=== PATIENT | male | born 1935 | race Caucasian/White ===

== ENCOUNTER 2016-03-19 10:55 | Emergency (ER) | payer OTHER, MEDICARE ==
[~2016-03-19] VITALS: Ht 190.5 cm; Wt 76.2 kg
[~2016-03-19 10:55] MED LIST: ALBUTEROL0.09 MG/A1 INH; AMOXIL 875 MG875 MG PO; AZILECT1 M1 PO; BACTRIM DS TAB1 EACH PO; BUSPIRONE HCL5 M1 PO; CARBIDOPA-LEVO1 EAC9 PO; FINASTERIDE5 M1 PO; FISH OIL 1,2001 EAC3 PO; FLOMAX0.4 M1 PO; GLUCOSAMINE &1 EAC1 PO; GLUCOSAMINE/CHO1 CAP PO; KEFLEX500 M1 PO; LOVASTATIN40 M1 PO; MAGNESIUM OXID400 M1 PO; OMEGA 31000 MG PO; OMEPRAZOLE40 M1 PO; POLYTRIM O200 GTT/BO OPH; TYLENOL325 M1 PO; VALSART/HCTZ TAB 320 PO; VESICARE 10MG10 MG PO; VESICARE5 M1 PO; VITAMIN B-650 M2 PO
[2016-03-19 11:05] VITALS: BP 149/69
--- NOTE | 2016-03-19 11:27 | ED THROAT/DENTAL COMPLAINT ---
History of Present Illness General Chief Complaint: Sore Throat, Dental Pain Stated Complaint: SORE THROAT X 30 MIN Source: patient Exam Limitations: no limitations Vital Signs & Intake/Output Vital Signs & Intake/Output Vital Signs Date Time Temp Pulse Resp B/P Pulse O2 O2 Flow FiO2 Ox Delivery Rate 03/19 1105 97.9 79 20 149/69 98 Room Air Allergies Coded Allergies: aspirin (BLEEDING- [facility]EVENS'S 11/30/15) Triage Note: PT TO ED C/O SORE THROAT X 1 HOUR. AFEBRILE. Triage Nurses Notes Reviewed? yes Onset: Gradual Duration: minute(s): (30) Timing: remote history Injury Environment: home Severity: moderate Severity Numbers: 6 Modifying Factors: Worsens With: other (SWALLOWING). HPI: Patient is a 80-year-old male with history of Parkinson presenting to the emergency department with chief complaint of sore throat that started about 30 minutes prior to arrival. Pain is sharp and stabbing more on the right than the left. Denies any fevers or chills. Mild upper respiratory congestion recently. Denies any coughing. No nausea or vomiting fevers or chills. No chest pain shortness of breath or palpitations. Pain does not radiate. Pain is worse with swallowing. (JOSEFA NICHOLAS,BOUCHRA) Reconcile Medications Acetaminophen (Tylenol) 325 MG TABLET 1 TAB PO PRN PAIN (Reported) BUSPIRONE HCL (Buspirone HCl) 5 MG TABLET 1 TAB PO TID ANXIETY (Reported) Carbidopa/Levodopa (Carbidopa-Levo ER 50-200 Tab) 1 EACH TABLET.ER 1 TAB PO 5 TIMES A DAY PARKINSONS (Reported) Finasteride (Propecia) 5 MG TAB 5 MG PO DAILY ENLARGED PROSTATE (Reported) Gluc 2KCL/Chondr/Yulissa Hy/Hy AC (Glucosamine & Chondroitin Cap) 1 EACH CAPSULE 1,500 MG PO DAILY SUPPLEMENT (Reported) Lidocaine HCl (Lidocaine HCl Viscous) 2 % SOLUTION 15 ML PO 4 TIMES/DAY PRN SORE THROAT Lovastatin 40 MG TABLET 1 TAB PO DAILY CHOL (Reported) with food Magnesium Oxide 400 MG TAB 1 TAB PO DAILY VIT (Reported) [place]-3S/Dha/Epa/Fish Oil (Fish Oil 1,200 MG Softgel) 1 EACH CAPSULE 2 CAP PO DAILY SUPPLEMENT (Reported) Omeprazole 40 MG CAPSULE.DR 1 CAP PO BID GI (Reported) Pyridoxine HCl (Vitamin B-6) (Unknown Strength) TABLET (Unknown Dose) PO DAILY SUPPLEMENT (Reported) Rasagiline (Azilect 1MG) 1 MG TABLET 1 TAB PO DAILY UNK (Reported) Solifenacin Succinate (Vesicare) 5 MG TABLET 1 TAB PO DAILY BLADDER (Reported ) TAMSULOSIN HCL (Tamsulosin Hydrochloride) 0.4 MG CAP.ER.24H 1 CAP PO DAILY URINE (Reported) (RUSSELL RANDOLPH DO) Past History Travel History Traveled to [place] past 21 day No Medical History Any Pertinent Medical History? 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 No (BOUCHRA PAREKH) Review of Systems Review of Systems Constitutional: Reports: no symptoms. Comments Review of systems: See HPI, All other systems negative. Constitutional, no chills fever or weight loss HEENT: No visual changes Cardiovascular: No chest pain ,palpitation Skin, no jaundice no rashes Respiratory: No dyspnea cough sputum or hemoptysis GI: No nausea no vomiting : No dysuria No hematuria Muscle skeletal: no back pain, no neck pain, Neurologic: No numbness no RODRIGUEZ Immunology: No splenectomy or history of AIDS (BOUCHRA PAREKH) Physical Exam Physical Exam General Appearance: well developed/nourished, no apparent distress, alert, awake , comfortable Mouth/Throat: PHARYNGEAL ERYTHEMA Comments: Well-developed well-nourished person in no acute distress HEENT: Normal EENT exam, extraocular motion intact, no nystagmus. Pupils equally round and reactive to light and accommodation. Nose is atraumatic. External auditory canal and Tympanic membranes clear. Pharynx . is injected and erythematous, mild tonsillar enlargement bilaterally. White exudate on the right tonsil. No peritonsillar abscess identified. Uvula is midline. No swelling or edema. Neck: Supple, no lymphadenopathy, normal range of motion without pain or tenderness Cardiovascular: normal JVP Respiratory:No respiratory distress. Neuro: Alert oriented x3 Skin: No appreciable rash on exposed skin, skin is warm and dry. Psych: Mood and affect is normal, memory and judgment is normal. Core Measures ACS in differential dx? No Severe Sepsis Present: No Septic Shock Present: No (BOUCHRA PAREKH) Progress Differential Diagnosis: strep pharyngitis, VIRAL PHARYNGITIS, UPPER RESPIRATORY INFECTION, SINUSITIS, LARYNGITIS, PERITONSILLAR ABSCESS Plan of Care: Orders Procedure Date/time Status THROAT CULTURE W/QUICK STREP 03/19 1107 Active Departure Departure Time of Disposition: 113 Disposition: HOME OR SELF CARE Condition: Stable Clinical Impression Primary Impression: Pharyngitis Qualifiers: Pharyngitis/tonsillitis etiology: unspecified etiology Qualified Code: J02.9 - Acute pharyngitis, unspecified Referrals: GATO LACEY MD (PCP/Family) Referred to [facility] as new patient No Additional Instructions: Follow-up with your primary care physician call to make an appointment. Increase fluids. Use viscous lidocaine as prescribed to help with sore throat. Follow-up with your primary care physician. Return for worsening symptoms or concerns. Departure Forms: Customer Survey General Discharge Information Prescriptions: Current Visit Scripts Lidocaine HCl (Lidocaine HCl Viscous) 15 ML PO 4 TIMES/DAY PRN SORE THROAT #100 ML (BOUCHRA PAREKH) PA/APPOINTMENT SETTER Co-Sign Statement Statement: ED Attending supervision documentation- [] I saw and evaluated the patient. I have also reviewed all the pertinent lab results and diagnostic results. I agree with the findings and the plan of care as documented in the PA's/APPOINTMENT SETTER's documentation. [x] I have reviewed the ED Record and agree with the PA's/APPOINTMENT SETTER's documentation. [] Additions or exceptions (if any) to the PAs/APPOINTMENT SETTER's note and plan are summarized below: [] (RUSSELL RANDOLPH DO)
[2016-03-19] MEDS ORDERED: LIDOCAINE HCL V15 ML PO (11:31)
[2016-03-20] MEDS ORDERED: STOOL SOFTENER50 MG PO (06:35)
[2016-03-20] MEDS ORDERED: NUPLAZID17 MG PO (06:36)
== END 2016-03-19 11:54 ==
LOC: ERH 10:55
DX: J02.9 Acute pharyngitis, unspecified (principal); Z87.891 Personal history of nicotine dependence

== ENCOUNTER 2016-03-20 02:00 | Inpatient (IN) | payer OTHER, MEDICARE ==
[~2016-03-20] VITALS: Ht 193 cm; Wt 76.2 kg
[~2016-03-20 02:00] MED LIST changes: +LIDOCAINE HCL V15 ML PO
--- NOTE | 2016-03-20 02:04 | ED AMS/SEIZURE/WEAK/DIZZY ---
History of Present Illness General Chief Complaint: Altered Mental Status Stated Complaint: "PER EMS NOSE BLEED" Source: EMS Exam Limitations: clinical condition Vital Signs & Intake/Output Vital Signs & Intake/Output Vital Signs Date Time Temp Pulse Resp B/P Pulse O2 O2 Flow FiO2 Ox Delivery Rate 03/20 0238 97.2 65 18 161/85 99 Room Air Allergies Coded Allergies: aspirin (BLEEDING- STEVENS'S 11/30/15) Reconcile Medications Acetaminophen (Tylenol) 325 MG TABLET 1 TAB PO PRN PAIN (Reported) BUSPIRONE HCL (Buspirone HCl) 5 MG TABLET 1 TAB PO TID ANXIETY (Reported) Carbidopa/Levodopa (Carbidopa-Levo ER 50-200 Tab) 1 EACH TABLET.ER 1 TAB PO 5 TIMES A DAY PARKINSONS (Reported) Finasteride (Propecia) 5 MG TAB 5 MG PO DAILY ENLARGED PROSTATE (Reported) Gluc 2KCL/Chondr/Yulissa Hy/Hy AC (Glucosamine & Chondroitin Cap) 1 EACH CAPSULE 1,500 MG PO DAILY SUPPLEMENT (Reported) Lidocaine HCl (Lidocaine HCl Viscous) 2 % SOLUTION 15 ML PO 4 TIMES/DAY PRN SORE THROAT Lovastatin 40 MG TABLET 1 TAB PO DAILY CHOL (Reported) with food Magnesium Oxide 400 MG TAB 1 TAB PO DAILY VIT (Reported) [place]-3S/Dha/Epa/Fish Oil (Fish Oil 1,200 MG Softgel) 1 EACH CAPSULE 2 CAP PO DAILY SUPPLEMENT (Reported) Omeprazole 40 MG CAPSULE.DR 1 CAP PO BID GI (Reported) Pyridoxine HCl (Vitamin B-6) (Unknown Strength) TABLET (Unknown Dose) PO DAILY SUPPLEMENT (Reported) Rasagiline (Azilect 1MG) 1 MG TABLET 1 TAB PO DAILY UNK (Reported) Solifenacin Succinate (Vesicare) 5 MG TABLET 1 TAB PO DAILY BLADDER (Reported ) TAMSULOSIN HCL (Tamsulosin Hydrochloride) 0.4 MG CAP.ER.24H 1 CAP PO DAILY URINE (Reported) Triage Nurses Notes Reviewed? yes Onset: Abrupt Duration: hour(s):, unknown duration Timing: recent history Injury Environment: home Severity: moderate Modifying Factors: Improves With: rest. Associated Symptoms: FELL AND HAD A NOSEBLEED HPI: 80 yo gentleman presents with mental status change of unknown duration. The medics note that his sister had come over and that he had been confused. He then called 911 and was able to speak. When the medics arrived he was minimally verbal, but appeared to have no focal weakness. Per the sister, "He cried out, 'help, help,' and then he did not respond... He was lying on the sofa.... lasted maybe 10-15 minutes and then I called 911." He is lethargic and minimally responsive to verbal stimuli. Past History Travel History Traveled to [place] past 21 day No Medical History Any Pertinent Medical History? 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 No Review of Systems Review of Systems Constitutional: Reports: no symptoms. EENTM: Reports: no symptoms. Respiratory: Reports: no symptoms. Cardiovascular: Reports: no symptoms. GI: Reports: no symptoms. Genitourinary: Reports: no symptoms. Musculoskeletal: Reports: no symptoms. Skin: Reports: no symptoms. Neurological/Psychological: Reports: no symptoms. Hematologic/Endocrine: Reports: no symptoms. Immunologic/Allergic: Reports: no symptoms. All Other Systems: Reviewed and Negative Physical Exam Physical Exam General Appearance: awake, mild distress, lethargic Head: atraumatic, normal appearance Eyes: Bilateral: normal appearance, PERRL, EOMI. Ears, Nose, Throat: normal pharynx, normal ENT inspection Neck: normal inspection, supple, full range of motion Respiratory: normal breath sounds, chest non-tender, no respiratory distress, quiet respiration, lungs clear Cardiovascular: regular rate/rhythm Gastrointestinal: normal bowel sounds, soft, non-tender Back: normal inspection, normal range of motion Extremities: normal range of motion, no focal weakness, but only weak stockroom associate bilaterally when asked to squeeze. Neurologic/Psych: lethargic, responsive to verbal stimuli Reflexes: 0: bicep (R), bicep (L), knee (R), knee (L). Skin: intact, normal color, warm/dry Core Measures ACS in differential dx? No CVA/TIA Diagnosis: No Severe Sepsis Present: No Septic Shock Present: No Progress Differential Diagnosis: alcohol intoxication, seizure vs parkinson's vs bleed vs other. Plan of Care: Orders Procedure Date/time Status Nothing by Mouth 03/20 B Active Patient Data 03/20 442 Active Saline Lock 03/20 439 Active Misc Message 03/20 439 Active ED Holding Orders 03/20 439 Active Vital Signs 03/20 439 Active Code Status 03/20 439 Active Admit to inpatient 03/20 438 Active PROLACTIN 03/20 299 Complete Add-on Test (ER Only) 03/20 255 Active URINE DRUG SCREEN FOR ER ONLY 03/20 203 Complete URINALYSIS 03/20 203 Complete TROPONIN LEVEL 03/20 203 Complete ETHANOL 03/20 203 Complete COMPREHENSIVE METABOLIC PANEL 03/20 203 Complete CBC WITHOUT DIFFERENTIAL 03/20 203 Complete EKG 03/20 203 Active Laboratory Tests 03/20/16 0329: Urine Opiates Screen < 100.00, Methadone Screen < 40, Barbiturate Screen < 60, Ur Phencyclidine Scrn < 6.00, Amphetamines Screen < 100, U Benzodiazepines Scrn < 85, Urine Cocaine Screen < 50, Urine Cannabis Screen < 5.00, Urine Color STRAW , Urine Clarity CLEAR, Urine pH 7.0, Ur Specific [place] 1.015, Urine Protein NEG, Urine Ketones NEG, Urine Nitrite NEG, Urine Bilirubin NEG, Urine Urobilinogen 0.2, Ur Leukocyte Esterase NEG, Ur Microscopic EXAM NOT REQUIRED, Urine Hemoglobin NEG, Urine Glucose NEG 03/20/16 0300: Anion Gap 11, Estimated GFR > 60, BUN/Creatinine Ratio 28.6 H, Glucose 112 H, Calcium 8.9, Total Bilirubin 0.5, AST 21, ALT 13 L, Alkaline Phosphatase 49, Troponin I < 0.01, Total Protein 6.5, Albumin 3.8, Globulin 2.7, Albumin/ Globulin Ratio 1.4, Prolactin 5.8, CBC w Diff NO MAN DIFF REQ, RBC 4.06 L, MCV 89.5, MCH 29.9, RDW 14.4, MPV 7.8, Gran % 75.8 H, Lymphocytes % 14.2 L, Monocytes % 7.1, Eosinophils % 2.0, Basophils % 0.9, Absolute Granulocytes 3.9, Absolute Lymphocytes 0.7 L, Absolute Monocytes 0.4, Absolute Eosinophils 0.1, Absolute Basophils 0, PUBS MCHC 33.4, Serum Alcohol < 10.0 Diagnostic Imaging: Viewed by Me: Radiology Read, CT Scan. Discussed w/RAD: Radiology Read, CT Scan. Radiology Impression: head/maxillofacial/cervical ct... no acute disease... full report below. CXR Impression: no acute abnormality, no infiltrates, normal size heart, normal mediastinum Initial ED EKG: normal axis, normal intervals, normal p-waves, normal QRS complex, normal sinus rhythm Comments: PATIENT: ANGELO DUBON PRESENT AGE: 80 PATIENT ACCOUNT NO: [id number] : 37 LOCATION: ER ORDERING PHYSICIAN: GUERO PIKE MD SERVICE DATE: 03/20/16 EXAM TYPE: RAD - XRY-PORTABLE CHEST XRAY EXAMINATION: XR PORTABLE CHEST CLINICAL INFORMATION: TIA COMPARISON: 01/03/2016 TECHNIQUE: AP portable upright view of the chest FINDINGS: Lungs are mildly hyperexpanded though clear. No consolidation, pneumothorax, or pleural effusion. Cardiac and mediastinal contours are normal. Pulmonary vasculature is unremarkable. Osseous structures are unremarkable. IMPRESSION: No acute cardiopulmonary findings DICTATED BY: JOSE G BAZAN MD DATE/TIME DICTATED:03/20/16405 [employer] SUPERINTENDENT:FLAKITA DATE/TIME TRANSCRIBED:03/20/16405 CONFIDENTIAL, DO NOT COPY WITHOUT APPROPRIATE AUTHORIZATION. <Electronically signed in Other Vendor System> SIGNED BY: JOSE G BAZAN MD 03/20/16 0415 PATIENT: ANGELO DUBON PRESENT AGE: 80 PATIENT ACCOUNT NO: [id number] : 37 LOCATION: ER ORDERING PHYSICIAN: UGERO PIKE MD SERVICE DATE: 03/20/16 EXAM TYPE: CAT - CT CERV SPINE WO IV CONTRAST; CT HEAD WO IV CONTRAST; CT MAXILLOFACIAL W/O CON EXAMINATION: CT OF THE HEAD WITHOUT CONTRAST CT MAXILLOFACIAL WITHOUT CONTRAST CT OF THE CERVICAL SPINE WITHOUT CONTRAST CLINICAL INFORMATION: Altered mental status. Fall. Nosebleed. COMPARISON: Head CT dated 06/21/2010 TECHNIQUE: Contiguous axial imaging of the head was performed without the administration of IV contrast. Axial multidetector volumetric images were also performed through the facial bones and cervical spine without contrast. Multiplanar reconstructed images in coronal and sagittal orientations were submitted. DOSE: 1816 mGy-cm FINDINGS: HEAD: There is no evidence of acute intracranial hemorrhage or territorial infarction. No abnormal mass-effect or midline shift. No extra-axial fluid collections. Rapp to white matter differentiation is well preserved. The ventricles are normal in size and configuration. There is no abnormal attenuation within the brain parenchyma. Mild ectasia of the left supraclinoid M1 segment is unchanged. The soft tissues and osseous structures are normal. The sinuses and mastoid air cells are clear. FACE: Orbits, lamina papyracea, maxillary sinus quiles, pterygoid plates, zygomatic arches, nasal bone, and nasal septum are intact. No acute fractures are identified. There is a calcific focus within the diploic space of the right supraorbital rim which is of doubtful clinical significance, likely developmental variant. Paranasal sinuses are clear. Mastoid air cells are clear. There is pneumatization of the petrous apices. Degenerative changes are present at the talonavicular joints. Maxilla is edentulous. The incisors and canines remain at the mandible with multiple dental caries. Globes are unremarkable. Intraconal and coronal fat of the orbits are normal. Tonsillar calcifications are present bilaterally. Oropharynx and nasopharynx are otherwise unremarkable. Calcific atherosclerosis is present in the carotid arteries. CERVICAL SPINE: There is mild to moderate multilevel degenerative disc disease in the cervical spine, characterized by loss of intervertebral disc height, endplate osteophytes, uncovertebral osteophytes, and endplate irregularity. Facet joints are relatively well-preserved. Degenerative changes are present at the articulation of C1 and the dens. No fracture or spondylolisthesis. Vertebral body heights are normal. Bones are osteopenic. Prevertebral and paraspinal soft tissues are unremarkable. No fluid collections. Pleural parenchymal scarring is present at the lung apices. IMPRESSION: 1. No acute intracranial pathology. 2. No acute maxillofacial fractures. Dental caries are present at the remaining mandibular teeth. 3. No acute fracture or malalignment in the cervical spine. There is mild to moderate multilevel degenerative disc disease. DICTATED BY: JOSE G BAZAN MD DATE/TIME DICTATED:03/20/16248 BI[employer]ASS [employer] SUPERINTENDENT:FLAKITA DATE/TIME TRANSCRIBED:03/20/16248 CONFIDENTIAL, DO NOT COPY WITHOUT APPROPRIATE AUTHORIZATION. <Electronically signed in Other Vendor System> SIGNED BY: JOSE G BAZAN MD 03/20/16 0302 Departure Departure Disposition: HOME OR SELF CARE Condition: Stable Clinical Impression Primary Impression: Mental status change Secondary Impressions: Unresponsive episode Referrals: GATO LACEY MD (PCP/Family) Referred to [facility] as new patient No Departure Forms: Customer Survey General Discharge Information Comments 03/20/16, 4:35am... pt is awake and alert, feels well, completely responding appropriately to all questions. Benign neuro exam. Admission Note Spoke With: GATO LACEY MD Documentation of Exam: Documentation of any treatments & extenuating circumstances including Concerns Regarding Discharge (functional status, medication knowledge or non-compliance, living conditions, etc.) that warrant an admission rather than observation: pt with period of unresponsiveness that lasted approximately 30 minutes, witness by myself and ED staff..... Wide differential: seizure, syncope, med-related, parksinson's. pt merits neuro and cards evaluation.
--- NOTE | 2016-03-20 02:18 | NUR ---
TRIAGE: PATIENT TO ER FROM HOME, PER EMS, CALL FOR NOSE BLEED, ON ARRIVAL, PATIENT LAYING ON FLOOR, INTERMITTENTLY ALERT TO BE VERBAL STIMULI, PATIENT NOT RESPONDING TO PAINFUL STIMULI ON ARRIVAL. PER EMS, WHEN INTERMITTENTLY ALERT
--- NOTE | 2016-03-20 02:46 | NUR ---
PATIENT RETURNS FROM CT W/ THIS RN. HR:69-72 ON MONITOR. EKG COMPLETED BY THIS RN. PATIENT NOW ALERT AND ORIENTED X 3, SPEECH SLOW, NO FACIAL DROOP NOTED. NEUROS INTACT. PATIENT REPORTING, "BEEN COUGHING FOR A FEW DAYS, FEEL LIKE MAYBE SOMETHING IN MY THROAT." AIRWAY PATENT, O2: 99% RA. SPEECH CLEAR. FINGERSTICK: 124. MD AWARE OF PATIENT CURRENT CONDITION. PATIENT RESTING COMFORTABLY ON STRETCHER, REPORTS "MAY HAVE TO PEE SOON, FEEL LIKE MY BLADDER IS FULL OF URINE," DECLINES URINAL AT THIS TIME.
--- NOTE | 2016-03-20 03:00 | NUR ---
HOSPITAL IV EST #20 LEFT HAND. BLOODWORK OBTAINED AND SENT TO LAB (LAV, SST X2, BLUE, AGUILAR). 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
--- NOTE | 2016-03-20 03:02 | CT SCAN REPORT ---
EXAMINATION: CT OF THE HEAD WITHOUT CONTRAST CT MAXILLOFACIAL WITHOUT CONTRAST CT OF THE CERVICAL SPINE WITHOUT CONTRAST CLINICAL INFORMATION: Altered mental status. Fall. Nosebleed. COMPARISON: Head CT dated 06/21/2010 TECHNIQUE: Contiguous axial imaging of the head was performed without the administration of IV contrast. Axial multidetector volumetric images were also performed through the facial bones and cervical spine without contrast. Multiplanar reconstructed images in coronal and sagittal orientations were submitted. DOSE: 1816 mGy-cm FINDINGS: HEAD: There is no evidence of acute intracranial hemorrhage or territorial infarction. No abnormal mass-effect or midline shift. No extra-axial fluid collections. Rapp to white matter differentiation is well preserved. The ventricles are normal in size and configuration. There is no abnormal attenuation within the brain parenchyma. Mild ectasia of the left supraclinoid M1 segment is unchanged. The soft tissues and osseous structures are normal. The sinuses and mastoid air cells are clear. FACE: Orbits, lamina papyracea, maxillary sinus quiles, pterygoid plates, zygomatic arches, nasal bone, and nasal septum are intact. No acute fractures are identified. There is a calcific focus within the diploic space of the right supraorbital rim which is of doubtful clinical significance, likely developmental variant. Paranasal sinuses are clear. Mastoid air cells are clear. There is pneumatization of the petrous apices. Degenerative changes are present at the talonavicular joints. Maxilla is edentulous. The incisors and canines remain at the mandible with multiple dental caries. Globes are unremarkable. Intraconal and coronal fat of the orbits are normal. Tonsillar calcifications are present bilaterally. Oropharynx and nasopharynx are otherwise unremarkable. Calcific atherosclerosis is present in the carotid arteries. CERVICAL SPINE: There is mild to moderate multilevel degenerative disc disease in the cervical spine, characterized by loss of intervertebral disc height, endplate osteophytes, uncovertebral osteophytes, and endplate irregularity. Facet joints are relatively well-preserved. Degenerative changes are present at the articulation of C1 and the dens. No fracture or spondylolisthesis. Vertebral body heights are normal. Bones are osteopenic. Prevertebral and paraspinal soft tissues are unremarkable. No fluid collections. Pleural parenchymal scarring is present at the lung apices. IMPRESSION: 1. No acute intracranial pathology. 2. No acute maxillofacial fractures. Dental caries are present at the remaining mandibular teeth. 3. No acute fracture or malalignment in the cervical spine. There is mild to moderate multilevel degenerative disc disease.
[2016-03-20 03:14] LABS: ABSOLUTE BASOPHIL COUNT 0 /CUMM (0.0-0.2); ABSOLUTE EOSINOPHIL COUNT 0.1 /CUMM (0.0-0.7); ABSOLUTE GRANULOCYTE CT 3.9 /CUMM (1.4-6.5); ABSOLUTE LYMPH COUNT 0.7 /CUMM (1.2-3.4); ABSOLUTE MONOCYTE COUNT 0.4 /CUMM (0.10-0.60); BASOPHIL % 0.9 % (0.0-2.0); GRANULOCYTE % 75.8 % (42.2-75.2); HEMATOCRIT 36.3 % (42-52); MEAN CORPUSCULAR HGB 29.9 PG (27.0-31.0); MEAN CORPUSCULAR HGB CONC 33.4 G/DL (33.0-37.0); MEAN CORPUSCULAR VOLUME 89.5 FL (80.0-94.0); MEAN PLATELET VOLUME 7.8 FL (7.4-10.4); PLATELET COUNT 155 /CUMM (130-400); RBC DISTRIBUTION WIDTH 14.4 % (11.5-14.5); RED BLOOD CELL CT 4.06 /CUMM (4.70-6.10); WHITE BLOOD CELL COUNT 5.1 /CUMM (4.8-10.8)
--- NOTE | 2016-03-20 03:15 | NUR ---
PATIENT ASSISTED TO USING URINAL BY [facility] AT THIS TIME.
--- NOTE | 2016-03-20 03:55 | NUR ---
PORTABLE XRAY IN PROGRESS.
--- NOTE | 2016-03-20 04:15 | RADIOLOGY REPORT ---
EXAMINATION: XR PORTABLE CHEST CLINICAL INFORMATION: TIA COMPARISON: 01/03/2016 TECHNIQUE: AP portable upright view of the chest FINDINGS: Lungs are mildly hyperexpanded though clear. No consolidation, pneumothorax, or pleural effusion. Cardiac and mediastinal contours are normal. Pulmonary vasculature is unremarkable. Osseous structures are unremarkable. IMPRESSION: No acute cardiopulmonary findings
--- NOTE | 2016-03-20 04:20 | NUR ---
MD PIKE AT BEDSIDE FOR REEVAL. PATIENT REMAINS ALERT AND ORIENTED.
--- NOTE | 2016-03-20 04:51 | History & Physical ---
See Addendum KELSEY HILL,JUVENAL 03/20/16 0447: General Information and HPI Source of Information: old records, EMS Exam Limitations: clinical condition History of Present Illness: And is a 80-year-old gentleman with a past medical history of significant for Syncope/pre-syncope, Parkinson's disease, Visual disturbances, Hypertension, Osteoarthritis, prostate cancer,Stevens esophagus, Intramucosal adenocarcinoma of the esophagu presented with the chief complaints of altered mental status. We got part of the history from the sister. According to her, the patient was sleeping and had epistaxis and shouted for the help and by the time,his sensorium become altered, so she called 911 and bring the patient to the ED of [facility]. In the hospital, the ED attending observed that the patient was having altered mental status at the time of first examination, but recovered in couple of hours. Patient had recently started on Nuplazide (pimavanserin) for hallucinations. Allergies/Medications Allergies: Coded Allergies: aspirin (BLEEDING- STEVENS'S 11/30/15) Home Med list Acetaminophen (Tylenol) 325 MG TABLET 1 TAB PO PRN PAIN (Reported) BUSPIRONE HCL (Buspirone HCl) 5 MG TABLET 1 TAB PO TID ANXIETY (Reported) Carbidopa/Levodopa (Carbidopa-Levo ER 50-200 Tab) 1 EACH TABLET.ER 1 TAB PO 5 TIMES A DAY PARKINSONS (Reported) Docusate Sodium (Stool Softener) 50 MG CAPSULE 1 TAB PO DAILY STOOL SOFTENER (Reported) Finasteride (Propecia) 5 MG TAB 5 MG PO DAILY ENLARGED PROSTATE (Reported) Gluc 2KCL/Chondr/Yulissa Hy/Hy AC (Glucosamine & Chondroitin Cap) 1 EACH CAPSULE 1,500 MG PO DAILY SUPPLEMENT (Reported) Lovastatin 40 MG TABLET 1 TAB PO DAILY CHOL (Reported) with food Magnesium Oxide 400 MG TAB 1 TAB PO DAILY VIT (Reported) [place]-3S/Dha/Epa/Fish Oil (Fish Oil 1,200 MG Softgel) 1 EACH CAPSULE 2 CAP PO DAILY SUPPLEMENT (Reported) Omeprazole 40 MG CAPSULE.DR 1 CAP PO BID GI (Reported) Pimavanserin Tartrate (Nuplazid) 17 MG TABLET 1 TAB PO DAILY PARKINSONS/ MEMORY (Reported) Pyridoxine HCl (Vitamin B-6) (Unknown Strength) TABLET (Unknown Dose) PO DAILY SUPPLEMENT (Reported) Rasagiline (Azilect 1MG) 1 MG TABLET 1 TAB PO DAILY UNK (Reported) Solifenacin Succinate (Vesicare) 5 MG TABLET 1 TAB PO DAILY BLADDER (Reported ) TAMSULOSIN HCL (Tamsulosin Hydrochloride) 0.4 MG CAP.ER.24H 1 CAP PO DAILY URINE (Reported) Past History Travel History Traveled to [place] past 21 day No Medical History Neurological: Parkinson's disease EENT: NONE Cardiovascular: hyperlipidemia Respiratory: NONE Gastrointestinal: GERD Hepatic: NONE Renal: NONE Musculoskeletal: NONE Psychiatric: NONE Endocrine: NONE Blood Disorders: NONE Cancer(s): NONE APPLIED BIOLOGY PROFESSOR/Reproductive: NONE Surgical History Surgical History: non-contributory Review of Systems Review of Systems Constitutional: Reports: malaise, weakness. Denies: chills, diaphoresis, fever. EENTM: Reports: blurred vision, double vision, visual changes, epistaxis. Cardiovascular: Reports: syncope. Denies: chest pain, edema, orthopena, palpitations, peripheral edema. Respiratory: Denies: cough, hemoptysis, orthopnea, short of breath, sputum production, stridor. GI: Denies: abdominal pain, bloating, constipation, diarrhea, distention, bowel incontinence, melena, nausea, bloody stool. Genitourinary: Denies: discharge, dysuria, frequency, hematuria, hesitation. Musculoskeletal: Denies: back pain, gout, joint pain, joint swelling, muscle pain, neck pain. Skin: Denies: no symptoms. Neurological/Psychological: Reports: anxiety, dementia, weakness. Exam & Diagnostic Data Last 24 Hrs of Vital Signs/I&O Vital Signs Date Time Temp Pulse Resp B/P Pulse O2 O2 Flow FiO2 Ox Delivery Rate 03/20 0503 96.4 65 18 164/81 98 Room Air 03/20 0247 99 Room Air 03/20 0238 97.2 65 18 161/85 99 Room Air Physical Exam General Appearance Alert, Oriented X3, Cooperative, No Acute Distress Skin No Breakdown, SMALL RED ERYTHEMA ON THE DORSUM OF THE RIGHT WRIST HEENT Atraumatic, PERRLA, EOMI Neck Supple, No JVD Cardiovascular Regular Rate, Normal S1, Normal S2 Lungs Clear to Auscultation, Normal Air Movement Abdomen Soft, No Tenderness Neurological Normal Speech Extremities No Clubbing, No Cyanosis, No Edema Assessment/Plan Assessment: Assessment and plan - Vital signs at the time of admission-temperature 97.2, pulse 65, respiratory rate 18, blood pressure 161/85, SPO2 98% on room air. CT head -showed no any acute intracranial pathology, acute maxillofacial fracture, fracture or malalignment of cervical spine. Problem list - AMS Syncope/pre-syncope Parkinson's disease Visual disturbances Hypertension Osteoarthritis. 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 Plan - * We will admit the patient in the telemetry * To rule out the acute intracranial pathology, we did a CT scan head which comes out negative * We will take neurology consult for further evaluation of altered mental status and follow their recommendations * We will consider EEG to rule out seizures activity * Will take all seizure precaution and aspiration precaution * We will also place cardiology consult to evaluate for arrhythmias * We'll follow serial EKGs/troponins to rule out acute coronary syndrome * We will continue carbidopa/levered up of her parkinsonism * We will continue finasteride for BPH/prostate cancer * Diet-heart healthy diet * DVT prophylaxis-ALP S/Lovenox * CODE STATUS-full code As Ranked By This Provider Problem List: 1. Altered mental status Core Measures/Miscellaneous Acute Coronary Syndrome ACS Diagnosis: No Cerebrovascular Accident CVA/TIA Diagnosis: No Congestive Heart Failure CHF Diagnosis: No Venous Thromboembolism VTE Risk Factors: Age > 40 VTE Prophylaxis Ordered Inpt: Mechanical (ALPS/TEDS) No Mech VTE prophylaxis d/t: No contraindications No VTE Pharm Prophylaxis d/t: No contraindications VTE Diagnosis: No VTE Type: NONE VTE Confirmed by (Test): NONE Severe Sepsis Severe Sepsis Present: No Septic Shock Septic Shock Present: No Miscellaneous Documentation Attending Case Discussed With: GATO LACEY MD Primary Care Physician: GATO LACEY MD Patient sees these Specialists Crew Manager Neurologist Level of Patient Care: Telemetry NICHOLAS DEVLIN 03/20/16 0545: Resident Review Statement Resident Statement: examined this patient, discussed with internet database specialist, agreed with internet database specialist Other Findings: Patient is a 80-year-old gentleman with a past medical history significant for parkinsonism, visual hallucinations, vision disturbances,, hypertension and hyperlipidemia, history of Stevens's esophagus not on aspirin, chest pain syndrome, history of epistaxis GERD, history of prostate cancer ,presented to the ED with altered mental status. Patient lives with her sister at around 1:30 AM this morning patient's started having epistaxis while sleeping, he called his sister for help. Sister became concerned and called 911 right away. In the meanwhile patient became confused/ disoriented and passed out. He was immediately brought to the ER. In the ED his vitals were stable, CT head to rule out any underlying acute intracranial pathology. However he remained confused/unresponsive for almost 30 minutes. Within 1-2 hours he became more alert and awake, responding appropriately to questions. Patient has no history of seizures. He usually follows up with Dr. Keller as an outpatient for parkinsonism. As per sister patient has been having visual hallucinations and was recently started on a medication Nuplazide (pimavanserin) for hallucinations that patient started on 03/16/2016. He was seen in ER yesterday for possible viral sore throat with local pain in the neck and was discharged with Lidoderm patch by the ER physician. Patient has a history of chest pain syndrome follows up with Dr. Ojeda as an outpatient. Vitals on admission temperature 97.2, pulse 65, respiratory rate 18, blood pressure 161/85 on room air. On examination: General Appearance:alert oriented 3 , not in acute distress. Skin: Grossly normal HEENT: PEERLA Neck: Supple, No JVD Cardiovascular: Regular rate and rhythm without any murmurs. Lungs: Equal breath sounds bilaterally on lung exam without any rhonchi or wheeze Abdomen: Normal Bowel Sounds without any tenderness. Neurological: Normal Speech, Strength at 5/5 X4 Ext, Cranial Nerves 3-12 NL, Reflexes 2+ Extremities: Normal without any edema. Vascular: Normal Pulses. Pertinent labs: Normal WBC count H&H low 12.1, 36.3 normal BeP, urinalysis is normal, normal urine toxicology CT head: No evidence of acute intracranial pathology. Assessment/plan 1. Altered mental status: Differentials include syncope/presyncope after epistaxis, seizure, cardiogenic-arrhythmias, orthostatic hypotension: * We will admit the patient to telemetry floor * Do serial troponin EKG regarding underlying ACS * Obtain echocardiogram * Will call cardiology in the morning * Hold Nuplazide (pimavanserin) for now. Will obtain neurology consult in the morning. * Seizure/fall precautions. * Check orthostatic vitals. * Watch for any hemodynamic instability. * Watch for any further epistaxis, if needed consult ENT. 2. History of parkinsonism * Continue carbidopa/levodopa 3. History of prostate cancer * continue finestride. 4.pain control with tylenol and oxycodon . 5 DVT prophylasix:Lovenox 6.Full CODE .
--- NOTE | 2016-03-20 04:58 | NUR ---
MED LIST CONFIRMED W/ PATIENT AND PATIENT'S SISTER PER PATIENT'S SISTER, PATIENT RECENTLY STARTED TAKING NYPLAZID 17MG DAILY, "IS WORKING UP TO TWO DAILY BUT THE PHARMACY DIDN'T HAVE IT YET." PATIENT'S SISTER REPORTS, "NOT WORKING BECAUSE HE WAS HALLUCINATING AND WANDERING TONIGHT."
--- NOTE | 2016-03-20 06:18 | NUR ---
AWAITING 0900 REPEAT TROP AND EKG.
--- NOTE | 2016-03-20 06:31 | NUR ---
Emergency Dept [facility] Admit Note: To be admitted to [facility] by DR. LACEY with SYNCOPE VS SEIZURE as the diagnosis, to TELE HOLD NO BEDS location. Nursing Medical Insurance Claims Specialist and admitting notified 03/20/16 at 0806
--- NOTE | 2016-03-20 06:32 | NUR ---
PATIENT MEDICATED W/ SINIMET AND PRILOSEC PER EMAR. TOLERATED WELL.
[2016-03-20] MEDS ORDERED: STOOL SOFTENER50 MG PO (06:35)
[2016-03-20] MEDS ORDERED: NUPLAZID17 MG PO (06:36)
--- NOTE | 2016-03-20 07:38 | NUR ---
ASSUMED CARE. NO FURTHER BLEEDING FORM RIGHT NARES. STOOD WITH HELP TO USE URINAL, SHAKY. ALERT, DENIES PAIN, SINUS RHTYHM ON MONITOR.
--- NOTE | 2016-03-20 07:47 | NUR ---
PER NURSING SUP PT IS A HOLD IN THE ED AT THIS TIME
--- NOTE | 2016-03-20 08:03 | NUR ---
[facility] STATES PT HAS FALLEN 11 TIMES SINCE , USES A WALKER AT HOME.
--- NOTE | 2016-03-20 09:11 | NUR ---
REPEAT ABG DONE BY RESP X, DR. SU AND RUBY HERE TO EVALUATE.
--- NOTE | 2016-03-20 09:42 | NUR ---
CIVIL TECHNICIAN NICHOLAS PAGED FOR EKG EVALUATION AT #[id number]
--- NOTE | 2016-03-20 09:51 | Admission Certification ---
Admission Certification Certification Statement - As attending physician, I certify that at the time of - admission, based on clinical presentation, severity of - symptoms, need for further diagnostic testing and - therapeutic interventions, and risk of adverse outcomes - without in-hospital treatment, in my clinical assessment, - this patient requires an acute hospital stay for a minimum - of two nights or longer. I have also considered psychsocial - factors such as support system, advanced age, financial - issues, cognitive issues, and failed out-patient treatments, - past re-admission history, safety of patient, and lack of - compliance as applicable. Specific rationale supporting this admission is: Syncopal episode, epistaxis, visual hallucinations patient with Parkinson's disease
--- NOTE | 2016-03-20 09:52 | NUR ---
BED ASSIGNMENT 180-01, BED NOT READY YET, WILL CALLL WHEN READY
--- NOTE | 2016-03-20 09:54 | PN- Att Addend ---
Attending Addendum Attending Brief Note 80-year-old white male now living with his sister with Parkinson's disease. Last evening started with another nosebleed, when his sister came to check him the patient was not responsive sister called 911 and patient was transferred to the emergency room after maybe 10 minutes appreciate regained consciousness patient has been having visual hallucinations and was started on a new medication recently, but per sister still seeing people will admit monitor telemetry have cardiology and neurology consultations and eventually physical therapy evaluation Laboratory Tests 03/20 03/20 0908 0329 Chemistry Troponin I (<0.11 ng/ml) < 0.01 Toxicology Urine Opiates Screen (>2000 NG/ML) < 100.00 Methadone Screen (>300 NG/ML) < 40 Barbiturate Screen (>200 NG/ML) < 60 Ur Phencyclidine Scrn (>25 NG/ML) < 6.00 Amphetamines Screen (>1000 NG/ML) < 100 U Benzodiazepines Scrn (>200 NG/ML) < 85 Urine Cocaine Screen (>300 NG/ML) < 50 Urine Cannabis Screen (>50 NG/ML) < 5.00 Urines Urine Color (YEL,AMB,STR) STRAW Urine Clarity (CLEAR) CLEAR Urine pH (5.0 - 8.0) 7.0 Ur Specific [place] (1.001 - 1.035) 1.015 Urine Protein (NEG,<30 MG/DL) NEG Urine Ketones (NEG) NEG Urine Nitrite (NEG) NEG Urine Bilirubin (NEG) NEG Urine Urobilinogen (0.1 - 1.0 EU/dl) 0.2 Ur Leukocyte Esterase (NEG) NEG Ur Microscopic EXAM NOT REQUIRED Urine Hemoglobin (NEG) NEG Urine Glucose (N MG/DL) NEG 03/20 0300 Chemistry Sodium (137 - 145 mmol/L) 140 Potassium (3.5 - 5.1 mmol/L) 4.4 Chloride (98 - 107 mmol/L) 100 Carbon Dioxide (22 - 30 mmol/L) 29 Anion Gap (5 - 16) 11 BUN (9 - 20 mg/dL) 20 Creatinine (0.7 - 1.2 mg/dL) 0.7 Estimated GFR (>60 ml/min) > 60 BUN/Creatinine Ratio (7 - 25 %) 28.6 H Glucose (65 - 99 mg/dL) 112 H Calcium (8.4 - 10.2 mg/dL) 8.9 Total Bilirubin (0.2 - 1.3 mg/dL) 0.5 AST (17 - 59 U/L) 21 ALT (21 - 72 U/L) 13 L Alkaline Phosphatase (< 127 U/L) 49 Troponin I (<0.11 ng/ml) < 0.01 Total Protein (6.3 - 8.2 g/dL) 6.5 Albumin (3.5 - 5.0 g/dL) 3.8 Globulin (1.9 - 4.2 gm/dL) 2.7 Albumin/Globulin Ratio (1.1 - 2.2 %) 1.4 Prolactin (3.7 - 17.9 ng/mL) 5.8 Hematology CBC w Diff NO MAN DIFF REQ WBC (4.8 - 10.8 /CUMM) 5.1 RBC (4.70 - 6.10 /CUMM) 4.06 L Hgb (14.0 - 18.0 G/DL) 12.1 L Hct (42 - 52 %) 36.3 L MCV (80.0 - 94.0 FL) 89.5 MCH (27.0 - 31.0 PG) 29.9 RDW (11.5 - 14.5 %) 14.4 Plt Count (130 - 400 /CUMM) 155 MPV (7.4 - 10.4 FL) 7.8 Gran % (42.2 - 75.2 %) 75.8 H Lymphocytes % (20.5 - 51.1 %) 14.2 L Monocytes % (1.7 - 9.3 %) 7.1 Eosinophils % (0 - 5 %) 2.0 Basophils % (0.0 - 2.0 %) 0.9 Absolute Granulocytes (1.4 - 6.5 /CUMM) 3.9 Absolute Lymphocytes (1.2 - 3.4 /CUMM) 0.7 L Absolute Monocytes (0.10 - 0.60 /CUMM) 0.4 Absolute Eosinophils (0.0 - 0.7 /CUMM) 0.1 Absolute Basophils (0.0 - 0.2 /CUMM) 0 PUBS MCHC (33.0 - 37.0 G/DL) 33.4 Toxicology Serum Alcohol (<10 MG/DL) < 10.0
--- NOTE | 2016-03-20 11:28 | NUR ---
AM MEDS GIVEN. ABLE TO SWLALLOW WATER.
--- NOTE | 2016-03-20 11:31 | NUR ---
US COMPLETED. TRANSPORT AND RESP CALLED.
--- NOTE | 2016-03-20 12:31 | NUR ---
REPORT TO FLOOR.
[2016-03-20 13:00] VITALS: BP 152/80
--- NOTE | 2016-03-20 15:09 | Cons- Cardiology ---
General Information and HPI Consulting Request Date of Consult: 03/20/16 Requested By: NIK AUSTIN MD Reason for Consult: Syncope History of Present Illness: The patient is a 74-year-old male who is followed by Dr. Ojeda with history of hypertension, Stevens's esophagus, and Parkinson's disease who is admitted for syncope. The patient does not recall the syncopal episode, and the history is obtained from patient's sister. The patient was sleeping and had epistaxis. He shouted for help, and when she found him he was unresponsive to verbal stimuli. Upon arrival in the emergency department he was not responding to painful stimuli. He subsequently awoke, and initially had slow speech. He reports that he has been coughing for a few days, and that he has been feeling like something was stuck in his throat. But time of my evaluation he was feeling better. He denies any chest pain, palpitations, shortness of breath, or diaphoresis. He does not recall any similar episodes in the past. Allergies/Medications Allergies: Coded Allergies: aspirin (BLEEDING- STEVENS'S 11/30/15) Home Med List: Acetaminophen (Tylenol) 325 MG TABLET 1 TAB PO PRN PAIN (Reported) BUSPIRONE HCL (Buspirone HCl) 5 MG TABLET 1 TAB PO TID ANXIETY (Reported) Carbidopa/Levodopa (Carbidopa-Levo ER 50-200 Tab) 1 EACH TABLET.ER 1 TAB PO 4 TIMES/DAY PARKINSONS (Reported) Docusate Sodium (Stool Softener) 50 MG CAPSULE 1 TAB PO DAILY STOOL SOFTENER (Reported) Finasteride (Propecia) 5 MG TAB 5 MG PO DAILY ENLARGED PROSTATE (Reported) Gluc 2KCL/Chondr/Yulissa Hy/Hy AC (Glucosamine & Chondroitin Cap) 1 EACH CAPSULE 1,500 MG PO DAILY SUPPLEMENT (Reported) Lovastatin 40 MG TABLET 1 TAB PO DAILY CHOL (Reported) with food Magnesium Oxide 400 MG TAB 1 TAB PO DAILY VIT (Reported) [place]-3S/Dha/Epa/Fish Oil (Fish Oil 1,200 MG Softgel) 1 EACH CAPSULE 2 CAP PO DAILY SUPPLEMENT (Reported) Omeprazole 40 MG CAPSULE. 1 CAP PO BID GI (Reported) Pimavanserin Tartrate (Nuplazid) 17 MG TABLET 1 TAB PO DAILY PARKINSONS/ MEMORY (Reported) Pyridoxine HCl (Vitamin B-6) (Unknown Strength) TABLET (Unknown Dose) PO DAILY SUPPLEMENT (Reported) Rasagiline (Azilect 1MG) 1 MG TABLET 1 TAB PO DAILY UNK (Reported) Solifenacin Succinate (Vesicare) 5 MG TABLET 1 TAB PO DAILY BLADDER (Reported ) TAMSULOSIN HCL (Tamsulosin Hydrochloride) 0.4 MG CAP.ER.24H 1 CAP PO DAILY URINE (Reported) Current Medications: Current Medications Sig/Mario Start time Last Medication Dose Route Stop Time Status Admin Acetaminophen 650 MG Q4P PRN 03/20 0500 AC PO Acetaminophen 1,000 MG Q8P PRN 03/20 0500 AC IV Atorvastatin Calcium 10 MG 1700 03/20 1700 AC PO Buspirone HCl 5 MG 0400,0900,1500 03/20 1500 AC PO Buspirone HCl 5 MG TID 03/20 1000 DC 03/20 PO 1127 Carbidopa/Levodopa 1 TAB 1500,2100 03/20 1500 AC PO Carbidopa/Levodopa 2 TAB 0400,0900 03/20 1045 AC 03/20 PO 1127 Carbidopa/Levodopa 1 TAB 5 TIMES A DAY 03/20 0600 DC 03/20 PO 0632 Enoxaparin Sodium 40 MG DAILY 03/20 1000 AC 03/20 SC 1127 Finasteride 5 MG DAILY 03/20 1000 AC 03/20 PO 1127 Lidocaine 15 ML 4 TIMES/DAY PRN 03/20 0545 AC PO Magnesium Oxide 400 MG DAILY 03/20 1000 AC 03/20 PO 1127 Omeprazole 40 MG DAILY AC 03/20 0700 AC 03/20 PO 0632 Omeprazole 0 .STK-MED ONE 03/20 0629 DC PO Oxybutynin Chloride 2.5 MG BID 03/20 1000 AC 03/20 PO 1127 Pyridoxine HCl 50 MG DAILY 03/20 1000 AC 03/20 PO 1127 Rasagiline 1 MG DAILY 03/20 1000 AC 03/20 PO 1127 Tamsulosin HCl 0.4 MG DAILY 03/20 1000 AC 03/20 PO 1127 Review of Systems Review of Systems: No rash. No tremor. No melena. No hemoptysis. All other systems were reviewed, and were noted to be negative. 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 Home Smoking Status: Former Smoker Exam & Diagnostic Data Vital Signs and I&O Vital Signs Date Time Temp Pulse Resp B/P Pulse O2 O2 Flow FiO2 Ox Delivery Rate 03/20 1300 97.8 58 20 152/80 97 Room Air 03/20 1214 95.7 60 18 175/86 98 Room Air 03/20 1127 84 146/79 03/20 1006 96.0 64 18 144/77 97 Room Air 03/20 0754 68 18 148/75 97 Room Air 03/20 0741 79 148/75 03/20 0503 96.4 65 18 164/81 98 Room Air 03/20 0247 99 Room Air 03/20 0238 97.2 65 18 161/85 99 Room Air Intake & Output 03/20 1600 03/20 0800 03/20 0000 03/19 1600 03/19 0800 03/19 0000 Intake Total Output Total 800 400 Balance -800 -400 Output, Urine 800 400 Physical Exam: Gen: The patient is in no acute distress HEENT: Normal nose, ears, and oropharynx. Pupils equal bilaterally. Conjunctiva normal. Neck: Supple with no JVD, no masses, and no thyromegaly Lungs: Clear to auscultation with normal respiratory effort Heart: RRR, S1, S2, 1/6 systolic murmur. No peripheral edema, 2+ pulses in the lower extremities bilaterally Abdomen: Soft, nontender, no masses. No hepatomegaly. No splenomegaly Extremities: No clubbing or cyanosis. Normal muscle strength in the upper and lower extremities Skin: Normal skin turgor with no skin ulcers or lesions noted. Neuro: Cranial nerves intact. Sensation intact Psych: Alert and oriented 3 with appropriate affect Labs/Eh Results: Laboratory Tests 03/20 03/20 03/20 1455 0908 0329 Chemistry Troponin I (<0.11 ng/ml) Pending < 0.01 Toxicology Urine Opiates Screen (>2000 NG/ML) < 100.00 Methadone Screen (>300 NG/ML) < 40 Barbiturate Screen (>200 NG/ML) < 60 Ur Phencyclidine Scrn (>25 NG/ML) < 6.00 Amphetamines Screen (>1000 NG/ML) < 100 U Benzodiazepines Scrn (>200 NG/ML) < 85 Urine Cocaine Screen (>300 NG/ML) < 50 Urine Cannabis Screen (>50 NG/ML) < 5.00 Urines Urine Color (YEL,AMB,STR) STRAW Urine Clarity (CLEAR) CLEAR Urine pH (5.0 - 8.0) 7.0 Ur Specific [place] (1.001 - 1.035) 1.015 Urine Protein (NEG,<30 MG/DL) NEG Urine Ketones (NEG) NEG Urine Nitrite (NEG) NEG Urine Bilirubin (NEG) NEG Urine Urobilinogen (0.1 - 1.0 EU/dl) 0.2 Ur Leukocyte Esterase (NEG) NEG Ur Microscopic EXAM NOT REQUIRED Urine Hemoglobin (NEG) NEG Urine Glucose (N MG/DL) NEG 03/20 0300 Chemistry Sodium (137 - 145 mmol/L) 140 Potassium (3.5 - 5.1 mmol/L) 4.4 Chloride (98 - 107 mmol/L) 100 Carbon Dioxide (22 - 30 mmol/L) 29 Anion Gap (5 - 16) 11 BUN (9 - 20 mg/dL) 20 Creatinine (0.7 - 1.2 mg/dL) 0.7 Estimated GFR (>60 ml/min) > 60 BUN/Creatinine Ratio (7 - 25 %) 28.6 H Glucose (65 - 99 mg/dL) 112 H Calcium (8.4 - 10.2 mg/dL) 8.9 Total Bilirubin (0.2 - 1.3 mg/dL) 0.5 AST (17 - 59 U/L) 21 ALT (21 - 72 U/L) 13 L Alkaline Phosphatase (< 127 U/L) 49 Troponin I (<0.11 ng/ml) < 0.01 Total Protein (6.3 - 8.2 g/dL) 6.5 Albumin (3.5 - 5.0 g/dL) 3.8 Globulin (1.9 - 4.2 gm/dL) 2.7 Albumin/Globulin Ratio (1.1 - 2.2 %) 1.4 Prolactin (3.7 - 17.9 ng/mL) 5.8 Hematology CBC w Diff NO MAN DIFF REQ WBC (4.8 - 10.8 /CUMM) 5.1 RBC (4.70 - 6.10 /CUMM) 4.06 L Hgb (14.0 - 18.0 G/DL) 12.1 L Hct (42 - 52 %) 36.3 L MCV (80.0 - 94.0 FL) 89.5 MCH (27.0 - 31.0 PG) 29.9 RDW (11.5 - 14.5 %) 14.4 Plt Count (130 - 400 /CUMM) 155 MPV (7.4 - 10.4 FL) 7.8 Gran % (42.2 - 75.2 %) 75.8 H Lymphocytes % (20.5 - 51.1 %) 14.2 L Monocytes % (1.7 - 9.3 %) 7.1 Eosinophils % (0 - 5 %) 2.0 Basophils % (0.0 - 2.0 %) 0.9 Absolute Granulocytes (1.4 - 6.5 /CUMM) 3.9 Absolute Lymphocytes (1.2 - 3.4 /CUMM) 0.7 L Absolute Monocytes (0.10 - 0.60 /CUMM) 0.4 Absolute Eosinophils (0.0 - 0.7 /CUMM) 0.1 Absolute Basophils (0.0 - 0.2 /CUMM) 0 PUBS MCHC (33.0 - 37.0 G/DL) 33.4 Toxicology Serum Alcohol (<10 MG/DL) < 10.0 Diagnostic Data EKG Results EKG tracing is independently reviewed, and reveals normal sinus rhythm at 62 with premature atrial complex CXR Results Negative Other Results Head CT: 1. No acute intracranial pathology. 2. No acute maxillofacial fractures. Dental caries are present at the remaining mandibular teeth. 3. No acute fracture or malalignment in the cervical spine. There is mild to moderate multilevel degenerative disc disease. Echocardiogram June 2010: 1. This was a technically difficult examination due to the patient's body habitus. 2. Minimal to mild aortic sclerosis is present in a tricuspid aortic valve with no valvular stenosis or insufficiency. 3. Minimal thickening of the mitral leaflets is present with minimal mitral insufficiency. 4. A very small posterior pericardial effusion is present. 5. The left ventricular chamber size is normal with mild concentric hypertrophy, a normal ejection fraction and no resting wall motion abnormalities. Muscular trabeculations are present at the LV apex. Mild diastolic dysfunction is present. 6. The right heart chambers are upper normal in size with minimal tricuspid insufficiency present. Assessment/Plan Assessment/Plan The patient is a 80-year-old male with history of Parkinson's disease, hypertension, and Stevens's esophagus who is admitted for mental status changes and possible syncope. He is now feeling better. The etiology of the syncope episode is unclear at this time. The differential diagnosis includes vasovagal episode, seizure, and cardiogenic syncope. Recommendations: * Monitor on telemetry for arrhythmias * Check orthostatic vital signs * Echocardiogram has been ordered and is pending. Consult Acknowledgment - Thank you for your consult request.
[2016-03-20 15:30] VITALS: BP 90/58
--- NOTE | 2016-03-20 15:57 | Cons- Neurology ---
General Information and HPI Consulting Request Date of Consult: 03/20/16 Requested By: NIK AUSTIN MD Reason for Consult: Unresponsive episode, Parkinson's disease Source of Information: patient Exam Limitations: dementia History of Present Illness: 80-year-old man known to me with Parkinson's disease, gait dominant, dementia with hallucinations and orthostatic hypotension was recently started on Pimavanserin\ for hallucinations. He is normally [place] with a walker but exhibits problems with acceleration and may fall. This morning he was calling his sister for help and on presentation to the emergency room described as lethargic and minimally verbal. Level of consciousness has returned to baseline. He currently denies headache, chest pain palpitations or dyspnea. Allergies/Medications Allergies: Coded Allergies: aspirin (BLEEDING- STEVENS'S 11/30/15) Home Med List: Acetaminophen (Tylenol) 325 MG TABLET 1 TAB PO PRN PAIN (Reported) BUSPIRONE HCL (Buspirone HCl) 5 MG TABLET 1 TAB PO TID ANXIETY (Reported) Carbidopa/Levodopa (Carbidopa-Levo ER 50-200 Tab) 1 EACH TABLET.ER 1 TAB PO 4 TIMES/DAY PARKINSONS (Reported) Docusate Sodium (Stool Softener) 50 MG CAPSULE 1 TAB PO DAILY STOOL SOFTENER (Reported) Finasteride (Propecia) 5 MG TAB 5 MG PO DAILY ENLARGED PROSTATE (Reported) Gluc 2KCL/Chondr/Yulissa Hy/Hy AC (Glucosamine & Chondroitin Cap) 1 EACH CAPSULE 1,500 MG PO DAILY SUPPLEMENT (Reported) Lovastatin 40 MG TABLET 1 TAB PO DAILY CHOL (Reported) with food Magnesium Oxide 400 MG TAB 1 TAB PO DAILY VIT (Reported) [place]-3S/Dha/Epa/Fish Oil (Fish Oil 1,200 MG Softgel) 1 EACH CAPSULE 2 CAP PO DAILY SUPPLEMENT (Reported) Omeprazole 40 MG CAPSULE.DR 1 CAP PO BID GI (Reported) Pimavanserin Tartrate (Nuplazid) 17 MG TABLET 1 TAB PO DAILY PARKINSONS/ MEMORY (Reported) Pyridoxine HCl (Vitamin B-6) (Unknown Strength) TABLET (Unknown Dose) PO DAILY SUPPLEMENT (Reported) Rasagiline (Azilect 1MG) 1 MG TABLET 1 TAB PO DAILY UNK (Reported) Solifenacin Succinate (Vesicare) 5 MG TABLET 1 TAB PO DAILY BLADDER (Reported ) TAMSULOSIN HCL (Tamsulosin Hydrochloride) 0.4 MG CAP.ER.24H 1 CAP PO DAILY URINE (Reported) Current Medications: Current Medications Sig/Mario Start time Last Medication Dose Route Stop Time Status Admin Acetaminophen 650 MG Q4P PRN 03/20 0500 AC PO Acetaminophen 1,000 MG Q8P PRN 03/20 0500 AC IV Atorvastatin Calcium 10 MG 1700 03/20 1700 AC PO Buspirone HCl 5 MG 0400,0900,1500 03/20 1500 AC 03/20 PO 1523 Buspirone HCl 5 MG TID 03/20 1000 DC 03/20 PO 1127 Carbidopa/Levodopa 1 TAB 1500,2100 03/20 1500 AC 03/20 PO 1523 Carbidopa/Levodopa 2 TAB 0400,0900 03/20 1045 AC 03/20 PO 1127 Carbidopa/Levodopa 1 TAB 5 TIMES A DAY 03/20 0600 DC 03/20 PO 0632 Enoxaparin Sodium 40 MG DAILY 03/20 1000 AC 03/20 SC 1127 Finasteride 5 MG DAILY 03/20 1000 AC 03/20 PO 1127 Lidocaine 15 ML 4 TIMES/DAY PRN 03/20 0545 AC PO Magnesium Oxide 400 MG DAILY 03/20 1000 AC 03/20 PO 1127 Omeprazole 40 MG DAILY AC 03/20 0700 AC 03/20 PO 0632 Omeprazole 0 .STK-MED ONE 03/20 0629 DC PO Oxybutynin Chloride 2.5 MG BID 03/20 1000 AC 03/20 PO 1127 Pyridoxine HCl 50 MG DAILY 03/20 1000 AC 03/20 PO 1127 Rasagiline 1 MG DAILY 03/20 1000 AC 03/20 PO 1127 Tamsulosin HCl 0.4 MG DAILY 03/20 1000 AC 03/20 PO 1127 Review of Systems Review of Systems: ROS: A complete medical systems review was obtained. He complains of pain in the right anterior cervical triangle. No pertinent complaints were found. 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 Home Smoking Status: Former Smoker ETOH Use: denies use Functional Ability Ambulation: walker Employment History Employment: Retired Exam & Diagnostic Data Vital Signs and I&O Vital Signs Date Time Temp Pulse Resp B/P Pulse O2 O2 Flow FiO2 Ox Delivery Rate 03/20 1300 97.8 58 20 152/80 97 Room Air 03/20 1214 95.7 60 18 175/86 98 Room Air 03/20 1127 84 146/79 03/20 1006 96.0 64 18 144/77 97 Room Air 03/20 0754 68 18 148/75 97 Room Air 03/20 0741 79 148/75 03/20 0503 96.4 65 18 164/81 98 Room Air 03/20 0247 99 Room Air 03/20 0238 97.2 65 18 161/85 99 Room Air Intake & Output 03/20 1600 03/20 0800 03/20 0000 Intake Total Output Total 800 400 Balance -800 -400 Output, Urine 800 400 Physical Exam: On exam the patient appeared generally well and in no distress. No carotid bruits and no cardiac murmur. No peripheral edema Mental status: Awake with eyes opened when I entered the room and stayed awake throughout the interview speech mildly hypophonic, no language errors. Immediate recall intact but short term memory impaired. Fund of knowledge impaired. Fully oriented, however. Funduscopic not well seen due to small pupils and uncontrolled ambient light Visual moody full , Eye movements full without nystagmus, pupils small equal round and reactive to light. Facial movement normal bilaterally but expression decreased Facial sensation normal bilaterally Hearing intact bilaterally Uvula elevates midline Tongue protrusion is midline Shoulder shrug symmetric Motor power and tone normal in upper extremities, icreased but power normal on manual testing in the legs Sensation intact to primary modes Tendon reflexes normal and symmetric without pathologic signs Coordination no ataxia, mild to moderate bradykinesia Gait testing deferred Last 48 Hours of Lab Results: Laboratory Tests 03/20 03/20 03/20 1455 0908 0329 Chemistry Troponin I (<0.11 ng/ml) Pending < 0.01 Toxicology Urine Opiates Screen (>2000 NG/ML) < 100.00 Methadone Screen (>300 NG/ML) < 40 Barbiturate Screen (>200 NG/ML) < 60 Ur Phencyclidine Scrn (>25 NG/ML) < 6.00 Amphetamines Screen (>1000 NG/ML) < 100 U Benzodiazepines Scrn (>200 NG/ML) < 85 Urine Cocaine Screen (>300 NG/ML) < 50 Urine Cannabis Screen (>50 NG/ML) < 5.00 Urines Urine Color (YEL,AMB,STR) STRAW Urine Clarity (CLEAR) CLEAR Urine pH (5.0 - 8.0) 7.0 Ur Specific [place] (1.001 - 1.035) 1.015 Urine Protein (NEG,<30 MG/DL) NEG Urine Ketones (NEG) NEG Urine Nitrite (NEG) NEG Urine Bilirubin (NEG) NEG Urine Urobilinogen (0.1 - 1.0 EU/dl) 0.2 Ur Leukocyte Esterase (NEG) NEG Ur Microscopic EXAM NOT REQUIRED Urine Hemoglobin (NEG) NEG Urine Glucose (N MG/DL) NEG 03/20 0300 Chemistry Sodium (137 - 145 mmol/L) 140 Potassium (3.5 - 5.1 mmol/L) 4.4 Chloride (98 - 107 mmol/L) 100 Carbon Dioxide (22 - 30 mmol/L) 29 Anion Gap (5 - 16) 11 BUN (9 - 20 mg/dL) 20 Creatinine (0.7 - 1.2 mg/dL) 0.7 Estimated GFR (>60 ml/min) > 60 BUN/Creatinine Ratio (7 - 25 %) 28.6 H Glucose (65 - 99 mg/dL) 112 H Calcium (8.4 - 10.2 mg/dL) 8.9 Total Bilirubin (0.2 - 1.3 mg/dL) 0.5 AST (17 - 59 U/L) 21 ALT (21 - 72 U/L) 13 L Alkaline Phosphatase (< 127 U/L) 49 Troponin I (<0.11 ng/ml) < 0.01 Total Protein (6.3 - 8.2 g/dL) 6.5 Albumin (3.5 - 5.0 g/dL) 3.8 Globulin (1.9 - 4.2 gm/dL) 2.7 Albumin/Globulin Ratio (1.1 - 2.2 %) 1.4 Prolactin (3.7 - 17.9 ng/mL) 5.8 Hematology CBC w Diff NO MAN DIFF REQ WBC (4.8 - 10.8 /CUMM) 5.1 RBC (4.70 - 6.10 /CUMM) 4.06 L Hgb (14.0 - 18.0 G/DL) 12.1 L Hct (42 - 52 %) 36.3 L MCV (80.0 - 94.0 FL) 89.5 MCH (27.0 - 31.0 PG) 29.9 RDW (11.5 - 14.5 %) 14.4 Plt Count (130 - 400 /CUMM) 155 MPV (7.4 - 10.4 FL) 7.8 Gran % (42.2 - 75.2 %) 75.8 H Lymphocytes % (20.5 - 51.1 %) 14.2 L Monocytes % (1.7 - 9.3 %) 7.1 Eosinophils % (0 - 5 %) 2.0 Basophils % (0.0 - 2.0 %) 0.9 Absolute Granulocytes (1.4 - 6.5 /CUMM) 3.9 Absolute Lymphocytes (1.2 - 3.4 /CUMM) 0.7 L Absolute Monocytes (0.10 - 0.60 /CUMM) 0.4 Absolute Eosinophils (0.0 - 0.7 /CUMM) 0.1 Absolute Basophils (0.0 - 0.2 /CUMM) 0 PUBS MCHC (33.0 - 37.0 G/DL) 33.4 Toxicology Serum Alcohol (<10 MG/DL) < 10.0 Imaging/Other Studies: CT scans: IMPRESSION: 1. No acute intracranial pathology. 2. No acute maxillofacial fractures. Dental caries are present at the remaining mandibular teeth. 3. No acute fracture or malalignment in the cervical spine. There is mild to moderate multilevel degenerative disc disease. Assessment/Plan Assessment: Unresponsive episode, most likely adverse reaction to medication or due to see and low blood pressure. He BUN/creatinine ratio suggests a degree of dehydration and the patient has had orthostatic symptoms in the past. No history of epilepsy, no seizure recognized today, likelihood of that a seizure occurred is very low Recommendations: Discontinue Nuplaizid If hallucinations develop, could be treated with low-dose Seroquel Continue current antiparkinson medications Check orthostatic blood pressures Out of bed, ambulate with walker and physical therapy Consider short-term rehabilitation Please call back if further problems arise Consult Acknowledgment - Thank you for your consult request.
--- NOTE | 2016-03-20 21:12 | PN- Housestaff ---
Subjective Follow-up For: altered mental status Subjective: patient was seen and examined this morning. no overnight events reported by the patient or the nurse. no acute distress, patient is alert, orianted x3 able to moblize without any complain. Patient denied chest pain, palpatation, dizzness. vital signs are stable. The patient's sister at [facility] mentioned that he has active visual hallusination dispite medication. Review of Systems Constitutional: Denies: chills, fever, weakness. EENTM: Denies: blurred vision, hearing changes. Cardiovascular: Denies: chest pain, palpitations, syncope. Respiratory: Denies: cough, orthopnea, short of breath, sputum production. Gastrointestinal: Denies: diarrhea, nausea, vomiting. Genitourinary: Denies: frequency, hematuria. Musculoskeletal: Denies: back pain, joint pain. Skin: Denies: rash. Objective Last 24 Hrs of Vital Signs/I&O Vital Signs Date Time Temp Pulse Resp B/P Pulse O2 O2 Flow FiO2 Ox Delivery Rate 03/20 1530 97.3 96 20 90/58 96 Room Air 03/20 1300 97.8 58 20 152/80 97 Room Air 03/20 1214 95.7 60 18 175/86 98 Room Air 03/20 1127 84 146/79 03/20 1006 96.0 64 18 144/77 97 Room Air 03/20 0754 68 18 148/75 97 Room Air 03/20 0741 79 148/75 03/20 0503 96.4 65 18 164/81 98 Room Air 03/20 0247 99 Room Air 03/20 0238 97.2 65 18 161/85 99 Room Air Intake & Output 03/20 1600 03/20 0800 03/20 0000 Intake Total Output Total 800 400 Balance -800 -400 Output, Urine 800 400 Physical Exam General Appearance: Alert, Oriented X3, Cooperative, No Acute Distress Skin: No Rashes, No Breakdown HEENT: Atraumatic, PERRLA, EOMI, Mucous Membr. moist/pink Neck: Supple, No JVD Cardiovascular: Regular Rate, Normal S1, Normal S2, No Murmurs Lungs: Clear to Auscultation, Normal Air Movement Abdomen: Normal Bowel Sounds, Soft, No Tenderness Neurological: Normal Speech, Strength at 5/5 X4 Ext, Normal Tone, Sensation Intact, Cranial Nerves 3-12 NL, Reflexes 2+ Extremities: No Clubbing, No Cyanosis, No Edema, Normal Pulses Vascular: Normal Pulses Current Medications: Current Medications Sig/Mario Start time Last Medication Dose Route Stop Time Status Admin Acetaminophen 650 MG Q4P PRN 03/20 0500 AC PO Acetaminophen 1,000 MG Q8P PRN 03/20 0500 AC IV Atorvastatin Calcium 10 MG 1700 03/20 1700 AC 03/20 PO 1728 Buspirone HCl 5 MG 0400,0900,1500 03/20 1500 AC 03/20 PO 1523 Buspirone HCl 5 MG TID 03/20 1000 DC 03/20 PO 1127 Carbidopa/Levodopa 1 TAB 1500,2100 03/20 1500 AC 03/20 PO 1523 Carbidopa/Levodopa 2 TAB 0400,0900 03/20 1045 AC 03/20 PO 1127 Carbidopa/Levodopa 1 TAB 5 TIMES A DAY 03/20 0600 DC 03/20 PO 0632 Enoxaparin Sodium 40 MG DAILY 03/20 1000 AC 03/20 SC 1127 Finasteride 5 MG DAILY 03/20 1000 AC 03/20 PO 1127 Lidocaine 15 ML 4 TIMES/DAY PRN 03/20 0545 AC PO Magnesium Oxide 400 MG DAILY 03/20 1000 AC 03/20 PO 1127 Omeprazole 40 MG DAILY AC 03/20 0700 AC 03/20 PO 0632 Omeprazole 0 .STK-MED ONE 03/20 0629 DC PO Oxybutynin Chloride 2.5 MG BID 03/20 1000 AC 03/20 PO 1127 Pyridoxine HCl 50 MG DAILY 03/20 1000 AC 03/20 PO 1127 Rasagiline 1 MG DAILY 03/20 1000 AC 03/20 PO 1127 Tamsulosin HCl 0.4 MG DAILY 03/20 1000 AC 03/20 PO 1127 Last 24 Hrs of Lab/Eh Results Last 24 Hrs of Labs/Mics: Laboratory Tests 03/20/16 1455: Troponin I < 0.01 03/20/16 0908: Troponin I < 0.01 03/20/16 0329: Urine Opiates Screen < 100.00, Methadone Screen < 40, Barbiturate Screen < 60, Ur Phencyclidine Scrn < 6.00, Amphetamines Screen < 100, U Benzodiazepines Scrn < 85, Urine Cocaine Screen < 50, Urine Cannabis Screen < 5.00, Urine Color STRAW , Urine Clarity CLEAR, Urine pH 7.0, Ur Specific [place] 1.015, Urine Protein NEG, Urine Ketones NEG, Urine Nitrite NEG, Urine Bilirubin NEG, Urine Urobilinogen 0.2, Ur Leukocyte Esterase NEG, Ur Microscopic EXAM NOT REQUIRED, Urine Hemoglobin NEG, Urine Glucose NEG 03/20/16 0300: Anion Gap 11, Estimated GFR > 60, BUN/Creatinine Ratio 28.6 H, Glucose 112 H, Calcium 8.9, Total Bilirubin 0.5, AST 21, ALT 13 L, Alkaline Phosphatase 49, Troponin I < 0.01, Total Protein 6.5, Albumin 3.8, Globulin 2.7, Albumin/ Globulin Ratio 1.4, Prolactin 5.8, CBC w Diff NO MAN DIFF REQ, RBC 4.06 L, MCV 89.5, MCH 29.9, RDW 14.4, MPV 7.8, Gran % 75.8 H, Lymphocytes % 14.2 L, Monocytes % 7.1, Eosinophils % 2.0, Basophils % 0.9, Absolute Granulocytes 3.9, Absolute Lymphocytes 0.7 L, Absolute Monocytes 0.4, Absolute Eosinophils 0.1, Absolute Basophils 0, PUBS MCHC 33.4, Serum Alcohol < 10.0 Assessment/Plan Assessment: Patient is a 80 y/o male with PMH of parkinsonism on carbidopa/levodopa, visual hallucinations on Nuplazide, hypertension and hyperlipidemia, 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 Problem list #AMS #Visual hallucination #parkinsonism #prostate cancer #AMS -Neurology consulation was obtained, appriciate the recom. -H&H 12.1/36.3 no drop from previous readings, consider ENT evaluation in case of recurrent epistaxes -orthstate measurment is positive -consider start fludrocortisone at 0.1 mg PO daily for orthostate. Midodrine could be a choice however the patient has history of prostate cancer on finsateride -mointor vital signs for any BP drop -f/u echo -troponin and EKG serial are negative -consider out of bed moblization with walker, fall risk precuation -consider short term rehab. #Visual hallucination -DC Nuplazide -Consider low dose Seroquel for hallucination per neurology #parkinsonism -cont. home medication #prostate cancer -cont. Finasteride pain control with tylenol and oxycodon Diet regular DVT prophylasix:Lovenox Full CODE Problem List: 1. Parkinson disease 2. Altered mental status 3. Epistaxis, recurrent Pain Ratin Pain Location: none Pain Goal: Remain pain free Pain Plan: tylenol and oxycodon Tomorrow's Labs & Rationales: CBC, BMP
[2016-03-20 22:25] VITALS: BP 142/64
--- NOTE | 2016-03-21 06:40 | PN- Housestaff ---
Subjective Follow-up For: altered mental status Tele-Events Since Last Visit: Sinus rhythm/sinus bradycardia Rate 50-60 No overnight events Subjective: Patient was seen and examined this morning, offered no complaint. No overnight events reported by the patient or the nurses. No acute distress, vital signs are stable. Review of Systems Constitutional: Denies: fever, malaise, weakness. EENTM: Denies: blurred vision, nasal congestion, epistaxis, throat pain. Cardiovascular: Denies: chest pain, palpitations, syncope. Respiratory: Denies: cough, orthopnea, short of breath, sputum production. Gastrointestinal: Denies: constipation, diarrhea, nausea, vomiting. Genitourinary: Denies: dysuria, hematuria. Musculoskeletal: Denies: joint pain. Objective Last 24 Hrs of Vital Signs/I&O Vital Signs Date Time Temp Pulse Resp B/P Pulse O2 O2 Flow FiO2 Ox Delivery Rate 03/21 0831 62 132/60 03/21 0829 97.4 62 18 132/60 100 Room Air 03/20 2225 97.9 70 20 142/64 96 Room Air 03/20 1530 97.3 96 20 90/58 96 Room Air 03/20 1300 97.8 58 20 152/80 97 Room Air 03/20 1214 95.7 60 18 175/86 98 Room Air Intake & Output 03/21 1600 03/21 0800 03/21 0000 Intake Total 100 520 Output Total 450 Balance -350 520 Intake, Oral 100 520 Output, Urine 450 Patient 76.204 kg Weight Physical Exam General Appearance: Alert, Oriented X3, Cooperative, No Acute Distress Skin: No Rashes, No Breakdown, No Significant Lesion HEENT: Atraumatic, PERRLA, EOMI, Mucous Membr. 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 Problem list #AMS #Visual hallucination #parkinsonism #prostate cancer #AMS -Neurology consulation was obtained, appriciate the recom. -H&H 12.36.3 no drop from previous readings, consider ENT evaluation in case of recurrent epistaxes -orthstate measurment was initially positive, repeated orthostatics today was negative -mointor vital signs for any BP drop -f/u echo -troponin and EKG serial are negative -consider out of bed moblization with walker, fall risk precuation -PT evaluation suggest short-term rehabilitation #Visual hallucination -DC Nuplazide -Consider low dose Seroquel for hallucination per neurology #parkinsonism -cont. home medication #prostate cancer -cont. Finasteride pain control with tylenol and oxycodon Diet regular DVT prophylasix:Lovenox Full CODE Problem List: 1. Parkinson disease 2. Unresponsive episode 3. Mental status change 4. Epistaxis, recurrent Pain Ratin Pain Location: none Pain Goal: Remain pain free Pain Plan: tylenol and oxycodon Tomorrow's Labs & Rationales: CBC and CMP
[2016-03-21 07:57] LABS: ABSOLUTE BASOPHIL COUNT 0 /CUMM (0.0-0.2); ABSOLUTE EOSINOPHIL COUNT 0.1 /CUMM (0.0-0.7); ABSOLUTE GRANULOCYTE CT 4.7 /CUMM (1.4-6.5); ABSOLUTE LYMPH COUNT 0.8 /CUMM (1.2-3.4); ABSOLUTE MONOCYTE COUNT 0.4 /CUMM (0.10-0.60); BASOPHIL % 0.4 % (0.0-2.0); EOSINOPHIL % 1.5 % (0-5); GRANULOCYTE % 79.2 % (42.2-75.2); HEMATOCRIT 34.8 % (42-52); MEAN CORPUSCULAR HGB 30.1 PG (27.0-31.0); MEAN CORPUSCULAR HGB CONC 34.3 G/DL (33.0-37.0); MEAN CORPUSCULAR VOLUME 87.8 FL (80.0-94.0); MEAN PLATELET VOLUME 7.9 FL (7.4-10.4); PLATELET COUNT 167 /CUMM (130-400); RBC DISTRIBUTION WIDTH 14.2 % (11.5-14.5); RED BLOOD CELL CT 3.96 /CUMM (4.70-6.10)
[2016-03-21 08:29] VITALS: BP 132/60
--- NOTE | 2016-03-21 12:55 | PN- Cardiology ---
Subjective Subjective: Cardiology status stable. Remains mildly confused. No new cardiac issues noted. Rhythm stable. Objective Vital Signs and I&Os Vital Signs Date Time Temp Pulse Resp B/P Pulse O2 O2 Flow FiO2 Ox Delivery Rate 03/21 0831 62 132/60 03/21 0829 97.4 62 18 132/60 100 Room Air 03/20 2225 97.9 70 20 142/64 96 Room Air 03/20 1530 97.3 96 20 90/58 96 Room Air 03/20 1300 97.8 58 20 152/80 97 Room Air Intake & Output 03/21 1600 03/21 0800 03/21 0000 03/20 1600 03/20 0800 03/20 0000 Intake Total 100 520 Output Total 450 800 400 Balance -350 520 -800 -400 Intake, Oral 100 520 Output, Urine 450 800 400 Patient 168 lb Weight Current Medications: Current Medications Sig/Mario Start time Last Medication Dose Route Stop Time Status Admin Acetaminophen 650 MG Q4P PRN 03/20 0500 AC PO Acetaminophen 1,000 MG Q8P PRN 03/20 0500 AC IV Atorvastatin Calcium 10 MG 1700 03/20 1700 AC 03/20 PO 1728 Buspirone HCl 5 MG 0400,0900,1500 03/20 1500 AC 03/21 PO 0831 Buspirone HCl 5 MG TID 03/20 1000 DC 03/20 PO 1127 Carbidopa/Levodopa 1 TAB 1500,2100 03/20 1500 AC 03/20 PO 2106 Carbidopa/Levodopa 2 TAB 0400,0900 03/20 1045 AC 03/21 PO 0831 Enoxaparin Sodium 40 MG DAILY 03/20 1000 AC 03/21 SC 0831 Finasteride 5 MG DAILY 03/20 1000 AC 03/21 PO 0830 Lidocaine 15 ML 4 TIMES/DAY PRN 03/20 0545 AC PO Magnesium Oxide 400 MG DAILY 03/20 1000 AC 03/21 PO 0830 Omeprazole 40 MG DAILY AC 03/20 0700 AC 03/21 PO 0830 Oxybutynin Chloride 2.5 MG BID 03/20 1000 AC 03/21 PO 0831 Pyridoxine HCl 50 MG DAILY 03/20 1000 AC 03/21 PO 0830 Rasagiline 1 MG DAILY 03/20 1000 AC 03/21 PO 0832 Tamsulosin HCl 0.4 MG DAILY 03/20 1000 AC 03/21 PO 0831 Results Last 48 Hrs of Labs/Mics: Laboratory Tests 03/21/16 0600: Anion Gap 13, Estimated GFR > 60, BUN/Creatinine Ratio 18.8, CBC w Diff NO MAN DIFF REQ, RBC 3.96 L, MCV 87.8, MCH 30.1, RDW 14.2, MPV 7.9, Gran % 79.2 H, Lymphocytes % 12.8 L, Monocytes % 6.1, Eosinophils % 1.5, Basophils % 0.4, Absolute Granulocytes 4.7, Absolute Lymphocytes 0.8 L, Absolute Monocytes 0.4, Absolute Eosinophils 0.1, Absolute Basophils 0, PUBS MCHC 34.3 03/20/16 1455: Troponin I < 0.01 03/20/16 0908: Troponin I < 0.01 03/20/16 0329: Urine Opiates Screen < 100.00, Methadone Screen < 40, Barbiturate Screen < 60, Ur Phencyclidine Scrn < 6.00, Amphetamines Screen < 100, U Benzodiazepines Scrn < 85, Urine Cocaine Screen < 50, Urine Cannabis Screen < 5.00, Urine Color STRAW , Urine Clarity CLEAR, Urine pH 7.0, Ur Specific [place] 1.015, Urine Protein NEG, Urine Ketones NEG, Urine Nitrite NEG, Urine Bilirubin NEG, Urine Urobilinogen 0.2, Ur Leukocyte Esterase NEG, Ur Microscopic EXAM NOT REQUIRED, Urine Hemoglobin NEG, Urine Glucose NEG 03/20/16 0300: Anion Gap 11, Estimated GFR > 60, BUN/Creatinine Ratio 28.6 H, Glucose 112 H, Calcium 8.9, Total Bilirubin 0.5, AST 21, ALT 13 L, Alkaline Phosphatase 49, Troponin I < 0.01, Total Protein 6.5, Albumin 3.8, Globulin 2.7, Albumin/ Globulin Ratio 1.4, Prolactin 5.8, CBC w Diff NO MAN DIFF REQ, RBC 4.06 L, MCV 89.5, MCH 29.9, RDW 14.4, MPV 7.8, Gran % 75.8 H, Lymphocytes % 14.2 L, Monocytes % 7.1, Eosinophils % 2.0, Basophils % 0.9, Absolute Granulocytes 3.9, Absolute Lymphocytes 0.7 L, Absolute Monocytes 0.4, Absolute Eosinophils 0.1, Absolute Basophils 0, PUBS MCHC 33.4, Serum Alcohol < 10.0 Assessment/Plan Assessment/Plan Assessment: 1. Mental status changes with possible syncope 2. Parkinson's disease 3. History of Mitchell's esophagus 4. Sinus bradycardia Recommendations: - Continue telemetry? Yes
--- NOTE | 2016-03-21 15:22 | PN- Att Addend ---
Attending Addendum Attending Brief Note Patient sitting in the chair still slightly confused to having visual hallucinations despite stopping that last medication he was started on sister at the bedside. No syncopal episodes while in the hospital the monitor seems stable appreciate cardiology's input and recommendations area will have physical therapy evaluation, patient probably will benefit from short-term rehabilitation Current Medications Sig/Mario Start time Last Medication Dose Route Stop Time Status Admin Acetaminophen 650 MG Q4P PRN 03/20 0500 AC PO Acetaminophen 1,000 MG Q8P PRN 03/20 0500 AC IV Atorvastatin Calcium 10 MG 1700 03/20 1700 AC 03/20 PO 1728 Buspirone HCl 5 MG 0400,0900,1500 03/20 1500 AC 03/21 PO 0831 Carbidopa/Levodopa 1 TAB 1500,2100 03/20 1500 AC 03/20 PO 2106 Carbidopa/Levodopa 2 TAB 0400,0900 03/20 1045 AC 03/21 PO 0831 Enoxaparin Sodium 40 MG DAILY 03/20 1000 AC 03/21 SC 0831 Finasteride 5 MG DAILY 03/20 1000 AC 03/21 PO 0830 Lidocaine 15 ML 4 TIMES/DAY PRN 03/20 0545 AC PO Magnesium Oxide 400 MG DAILY 03/20 1000 AC 03/21 PO 0830 Omeprazole 40 MG DAILY AC 03/20 0700 AC 03/21 PO 0830 Oxybutynin Chloride 2.5 MG BID 03/20 1000 AC 03/21 PO 0831 Pyridoxine HCl 50 MG DAILY 03/20 1000 AC 03/21 PO 0830 Rasagiline 1 MG DAILY 03/20 1000 AC 03/21 PO 0832 Tamsulosin HCl 0.4 MG DAILY 03/20 1000 AC 03/21 PO 0831 Laboratory Tests 03/21/16 0600: Anion Gap 13, Estimated GFR > 60, BUN/Creatinine Ratio 18.8, CBC w Diff NO MAN DIFF REQ, RBC 3.96 L, MCV 87.8, MCH 30.1, RDW 14.2, MPV 7.9, Gran % 79.2 H, Lymphocytes % 12.8 L, Monocytes % 6.1, Eosinophils % 1.5, Basophils % 0.4, Absolute Granulocytes 4.7, Absolute Lymphocytes 0.8 L, Absolute Monocytes 0.4, Absolute Eosinophils 0.1, Absolute Basophils 0, PUBS MCHC 34.3 Vital Signs Date Time Temp Pulse Resp B/P Pulse O2 O2 Flow FiO2 Ox Delivery Rate 03/21 0831 62 132/60 03/21 0829 97.4 62 18 132/60 100 Room Air 03/20 2225 97.9 70 20 142/64 96 Room Air 03/20 1530 97.3 96 20 90/58 96 Room Air Intake & Output 03/21 1600 03/21 0800 03/21 0000 Intake Total 100 520 Output Total 450 Balance -350 520 Intake, Oral 100 520 Output, Urine 450 Patient 168 lb Weight
[2016-03-21 16:54] VITALS: BP 129/72
[2016-03-21 22:59] VITALS: BP 120/72
--- NOTE | 2016-03-22 07:15 | PN- Housestaff ---
Subjective Follow-up For: altered mental status Tele-Events Since Last Visit: Sinus rhythm Heart rate 63-73 No overnight events Subjective: Patient was seen and examined this morning. No acute distress, vital signs are stable. Patient was very confused overnight, roaming around and wondering, [place] restrain was started, patient was drained this morning, alert, disoriented to place. Patient offered no complaint Review of Systems Constitutional: Denies: no symptoms. Neurological/Psychological: Reports: confusion. Objective Last 24 Hrs of Vital Signs/I&O Vital Signs Date Time Temp Pulse Resp B/P Pulse O2 O2 Flow FiO2 Ox Delivery Rate 03/22 1358 Room Air 03/22 0848 98.0 63 16 120/70 95 03/22 0814 62 124/64 03/21 2259 97.6 56 18 120/72 96 Room Air 03/21 1654 98.3 62 16 129/72 99 Room Air Intake & Output 03/22 1600 03/22 0800 03/22 0000 Intake Total 840 130 250 Output Total 680 525 300 Balance 160 -395 -50 Intake, IV 10 10 Intake, Oral 840 120 240 Number 1 Bowel Movements Output, Urine 680 525 300 Patient 76.204 kg Weight Physical Exam General Appearance: Alert, Cooperative, No Acute Distress Cardiovascular: Regular Rate, Normal S1, Normal S2, No Murmurs Lungs: Clear to Auscultation, Normal Air Movement Abdomen: Normal Bowel Sounds, Soft, No Tenderness Neurological: Normal Speech, Strength at 5/5 X4 Ext, Normal Tone Extremities: No Clubbing, No Cyanosis, No Edema, Normal Pulses Assessment/Plan Assessment: Patient is a 80 y/o male with PMH of parkinsonism on carbidopa/levodopa, visual hallucinations on Nuplazide, hypertension and hyperlipidemia, 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 Problem list #AMS #Visual hallucination #parkinsonism #prostate cancer #AMS -Neurology consulation was obtained, appriciate the recom. -H&H 12.36.3 no drop from previous readings, consider ENT evaluation in case of recurrent epistaxes -orthstate measurment was initially positive, repeated orthostatics was negative -mointor vital signs for any BP drop -f/u echo -troponin and EKG serial are negative -PT evaluation suggest short-term rehabilitation -Anticipated discharge tomorrow #Visual hallucination -DC Nuplazide -Seroquel 25 mg BID for hallucination was started - Continue kwesi strain until the patient is oriented #parkinsonism -cont. home medication #prostate cancer -cont. Finasteride pain control with tylenol and oxycodon Diet regular DVT prophylasix:Lovenox Full CODE Problem List: 1. Parkinson disease 2. Epistaxis, recurrent 3. Altered mental status Pain Ratin Pain Location: n/a Pain Goal: Remain pain free Pain Plan: see medication Tomorrow's Labs & Rationales: cmp
[2016-03-22 08:48] VITALS: BP 120/70
[2016-03-22 08:59] LABS: ABSOLUTE BASOPHIL COUNT 0 /CUMM (0.0-0.2); ABSOLUTE EOSINOPHIL COUNT 0.1 /CUMM (0.0-0.7); ABSOLUTE GRANULOCYTE CT 3.9 /CUMM (1.4-6.5); ABSOLUTE LYMPH COUNT 0.8 /CUMM (1.2-3.4); ABSOLUTE MONOCYTE COUNT 0.3 /CUMM (0.10-0.60); BASOPHIL % 0.5 % (0.0-2.0); EOSINOPHIL % 1.6 % (0-5); GRANULOCYTE % 75.9 % (42.2-75.2); HEMATOCRIT 37.4 % (42-52); MEAN CORPUSCULAR HGB 30.1 PG (27.0-31.0); MEAN CORPUSCULAR HGB CONC 34.2 G/DL (33.0-37.0); MEAN PLATELET VOLUME 8.1 FL (7.4-10.4); PLATELET COUNT 166 /CUMM (130-400); RBC DISTRIBUTION WIDTH 14.4 % (11.5-14.5); RED BLOOD CELL CT 4.25 /CUMM (4.70-6.10); WHITE BLOOD CELL COUNT 5.2 /CUMM (4.8-10.8)
--- NOTE | 2016-03-22 11:28 | Discharge Summary ---
Visit Information Visit Dates Admission Date: 03/20/16 Discharge Date: 03/26/16 Hospital Course Course Attending Physician: gato calvillo Primary Care Physician: DEEPTHI HILL,[facility] Course: Yonatan is 72-year-old man with medical history of Parkinson's disease visual hallucinations and disturbances hypertension dyslipidemia Stevens's esophagus chest pain syndrome epistaxis GERD prostate cancer was presented with altered mental status, and subsequently admitted to rule out syncope presyncope post epistaxis seizure disorder cardiogenic arrhythmias and orthostatic hypotension. He did have positive orthostatic vital signs. He was given intravenous fluids, serial troponin and EKGs were checked (negative 3), echocardiogram was obtained. Cardiology consultation was sought along with neurology. He was placed on seizure and fall precautions. Noncontrast CT of the head and C-spine did not show any acute intracranial pathologies or maxillofacial fractures or any acute fracture or malalignment in the cervical spine. There was mild to moderate multilevel degenerative disc disease. Chest x-ray was normal Nasal bleeding did valente. We'll continue his carbidopa levodopa combination however discontinued Nuplazide on admission, and we will discontinue it on discharge per neurology recommendations. He will be on Seroquel instead. He complained of testicular pain, and a Urinalysis and testicular US were perforemd, results pending. PT evaluation recommends rehabilitation. Patient will be discharge to short-term able to short-term rehabilitation. Post discharge, He should follow- up with Dr. Adonay Calvillo (primary medical doctor), Onesimo Keller MD ( neurology) - Problems - Altered mental status/lethargy/minimal verbosity Epistaxis Fall Allergies: Coded Allergies: aspirin (BLEEDING- STEVENS'S 11/30/15) Disposition Summary Disposition Principal Diagnosis: Altered mental status/lethargy/minimal verbosity Additional Diagnosis: Epistaxis Fall Discharge Disposition: STR Discharge Instructions General Discharge Information Code Status: Full Code Patient's Diet: Regular diet Patient's Activity: Self-limited Follow-Up Instructions/Appts: Post discharge, He should follow-up with Dr. Adonay Calvillo (primary medical doctor), Onesimo Keller MD (neurology) Medications at Discharge Discharge Medications: Stop taking the following medications: Pimavanserin Tartrate (Nuplazid) 17 MG TABLET ORAL DAILY Continue taking these medications: Omeprazole (Omeprazole) 40 MG CAPSULE. 1 Capsule ORAL TWICE DAILY Comments: PER PT MED LIST TAMSULOSIN HCL (Tamsulosin Hydrochloride) 0.4 MG CAP.ER.24H 1 Capsule ORAL DAILY Qty = 30 Carbidopa/Levodopa (Carbidopa-Levo ER 50-200 Tab) 1 EACH TABLET.ER 1 Tablet ORAL 4 TIMES A DAY Comments: PER SHARATH RN; PT TAKES 2 TABS @ 4AM, 2 TABS @ 9 AM, 1 TAB @ 3PM AND 1 TAB @ 9 PM- JS BUSPIRONE HCL (Buspirone HCl) 5 MG TABLET 1 Tablet ORAL THREE TIMES DAILY Qty = 100 Rasagiline Mesylate (Azilect) 1 MG TABLET 1 Tablet ORAL DAILY Lovastatin (Lovastatin) 40 MG TABLET 1 Tablet ORAL DAILY Qty = 90 Instructions: with food Pyridoxine HCl (Vitamin B-6) 50 MG TABLET 1 Tablet ORAL DAILY Comments: PER PT Magnesium Oxide (Magnesium Oxide) 400 MG TAB 1 Tablet ORAL DAILY Finasteride (Propecia) 5 MG TAB 5 Milligram ORAL DAILY Gluc 2KCL/Chondr/Yulissa Hy/Hy AC (Glucosamine & Chondroitin Cap) 1 EACH CAPSULE 1,500 Milligram ORAL DAILY Comments: PER PT MED LIST Phyllis-3S/Dha/Epa/Fish Oil (Fish Oil 1,200 MG Softgel) 1 EACH CAPSULE 2 Capsule ORAL DAILY Comments: PER PT Solifenacin Succinate (Vesicare) 5 MG TABLET 1 Tablet ORAL DAILY Comments: PER PT MED LIST Acetaminophen (Tylenol) 325 MG TABLET 1 Tablet ORAL as needed for PAIN Comments: PER PT SISTER Docusate Sodium (Stool Softener) 50 MG CAPSULE 1 Tablet ORAL DAILY Start taking the following new medications: Quetiapine Fumarate (Seroquel) 25 MG TABLET 1 Tablet ORAL TWICE DAILY Qty = 60 No Refills Copies To: JUSTINO HILL,ONESIMO Tam; ABRIL HILL,Joseph PASCUAL; DEEPTHI HILL,GATO
--- NOTE | 2016-03-22 11:42 | Patient Discharge Instructions ---
Discharge Instructions General Discharge Information You were seen/treated for: - ALTERED MENTAL STATUS - FALL - EPISTAXIS Special Instructions: STOP TAKING NUPLAZID. TAKE SEROQUEL INSTRUCTED Please follow-up with PCP after 1 week discharge. You will need to follow up for:. Incidental spermatocele/epididymal head cyst within the left epididymis. Diet Recommended Diet: Regular Activity Activity Self Limited: Yes Acute Coronary Syndrome Inclusion Criteria At DC or during hospital stay patient has or had the following: ACS DIAGNOSIS No Discharge Core Measures Meds if any: Prescribed or Continued at Discharge Meds if any: NOT Prescribed or Continued at Discharge Congestive Heart Failure Inclusion Criteria At DC or during hospital stay patient has or had the following: CHF DIAGNOSIS No Discharge Core Measures Meds if any: Prescribed or Continued at Discharge Meds if any: NOT Prescribed or Continued at Discharge Cerebrovascular accident Inclusion Criteria At DC or during hospital stay patient has or had the following: CVA/TIA Diagnosis No Discharge Core Measures Meds if any: Prescribed or Continued at Discharge Meds if any: NOT Prescribed or Continued at Discharge Venous thromboembolism Inclusion Criteria VTE Diagnosis No VTE Type NONE VTE Confirmed by (Test) NONE Discharge Core Measures - Per Current guidelines, there needs to be overlap - treatment for the first 5 days of Warfarin therapy. - If discharged on Warfarin prior to 5 days of - overlap therapy, the patient will need to be - assessed for post discharge needs including - *Post discharge parental anticoagulation - *Warfarin and/or parental anticoagulation education - *Follow up date to check INR post discharge At least 5 days overlap therapy as Inpatient No Meds if any: Prescribed or Continued at Discharge Note: Overlap Therapy is Warfarin and Anticoagulant Meds if any: NOT Prescribed or Continued at Discharge
[2016-03-22] MEDS ORDERED: SEROQUEL25 M1 PO (11:44)
--- NOTE | 2016-03-22 11:55 | PN- Att Addend ---
Attending Addendum Attending Brief Note Patient still confused agitated at times and to get out of bed last night. Sister at the bedside vital signs are stable, no major changes on physical. If stable in a.m. then start disposition plans to go to short-term rehabilitation. Current Medications Sig/Mario Start time Last Medication Dose Route Stop Time Status Admin Acetaminophen 650 MG Q4P PRN 03/20 0500 AC PO Acetaminophen 1,000 MG Q8P PRN 03/20 0500 AC IV Atorvastatin Calcium 10 MG 1700 03/20 1700 AC 03/21 PO 1650 Buspirone HCl 5 MG 0400,0900,1500 03/20 1500 AC 03/22 PO 0810 Carbidopa/Levodopa 1 TAB 1500,2100 03/20 1500 AC 03/21 PO 2027 Carbidopa/Levodopa 2 TAB 0400,0900 03/20 1045 AC 03/22 PO 0810 Enoxaparin Sodium 40 MG DAILY 03/20 1000 AC 03/22 SC 0815 Finasteride 5 MG DAILY 03/20 1000 AC 03/22 PO 0814 Lidocaine 15 ML 4 TIMES/DAY PRN 03/20 0545 AC PO Magnesium Oxide 400 MG DAILY 03/20 1000 AC 03/22 PO 0814 Omeprazole 40 MG DAILY AC 03/20 0700 AC 03/22 PO 0534 Oxybutynin Chloride 2.5 MG BID 03/20 1000 AC 03/22 PO 0811 Pyridoxine HCl 50 MG DAILY 03/20 1000 AC 03/22 PO 0814 Quetiapine Fumarate 25 MG BID 03/22 1143 AC PO Rasagiline 1 MG DAILY 03/20 1000 AC 03/22 PO 0809 Tamsulosin HCl 0.4 MG DAILY 03/20 1000 AC 03/22 PO 0814 Laboratory Tests 03/22/16 0605: CBC w Diff NO MAN DIFF REQ, RBC 4.25 L, MCV 88.0, MCH 30.1, RDW 14.4, MPV 8.1, Gran % 75.9 H, Lymphocytes % 15.7 L, Monocytes % 6.3, Eosinophils % 1.6, Basophils % 0.5, Absolute Granulocytes 3.9, Absolute Lymphocytes 0.8 L, Absolute Monocytes 0.3, Absolute Eosinophils 0.1, Absolute Basophils 0, PUBS MCHC 34.2 Vital Signs Date Time Temp Pulse Resp B/P Pulse O2 O2 Flow FiO2 Ox Delivery Rate 01/05 0848 98.0 63 16 120/70 95 03/22 0814 62 124/64 03/21 2259 97.6 56 18 120/72 96 Room Air 03/21 1654 98.3 62 16 129/72 99 Room Air Vital Signs Date Time Temp Pulse Resp B/P Pulse O2 O2 Flow FiO2 Ox Delivery Rate 03/22 847 98.0 63 16 120/70 95 03/22 813 62 124/64 Intake & Output 03/22 1600 Intake Total Output Total Balance Patient 168 lb Weight
--- NOTE | 2016-03-22 16:21 | PN- Cardiology ---
Subjective Subjective: no major change. Remains persistently confused. No new cardiac issues Objective Vital Signs and I&Os Vital Signs Date Time Temp Pulse Resp B/P Pulse O2 O2 Flow FiO2 Ox Delivery Rate 03/22 1358 Room Air 03/22 0848 98.0 63 16 120/70 95 03/22 0814 62 124/64 03/21 2259 97.6 56 18 120/72 96 Room Air 03/21 1654 98.3 62 16 129/72 99 Room Air Intake & Output 03/22 1600 03/22 0803/22 0000 03/21 1600 03/21 0800 03/21 0000 Intake Total 840 130 250 700 100 520 Output Total 680 525 300 450 Balance 160 -395 -50 700 -350 520 Intake, IV 10 10 Intake, Oral 840 120 240 700 100 520 Number 1 Bowel Movements Output, Urine 680 525 300 450 Patient 168 lb 168 lb Weight Current Medications: Current Medications Sig/Mario Start time Last Medication Dose Route Stop Time Status Admin Acetaminophen 650 MG Q4P PRN 03/20 0500 AC PO Acetaminophen 1,000 MG Q8P PRN 03/20 0500 AC IV Atorvastatin Calcium 10 MG 1700 03/20 1700 AC 03/21 PO 1650 Buspirone HCl 5 MG 0400,0900,1500 03/20 1500 AC 03/22 PO 0810 Carbidopa/Levodopa 1 TAB 1500,2100 03/20 1500 AC 03/21 PO 2027 Carbidopa/Levodopa 2 TAB 0400,0900 03/20 1045 AC 03/22 PO 0810 Enoxaparin Sodium 40 MG DAILY 03/20 1000 AC 03/22 SC 0815 Finasteride 5 MG DAILY 03/20 1000 AC 03/22 PO 0814 Lidocaine 15 ML 4 TIMES/DAY PRN 03/20 0545 AC PO Magnesium Oxide 400 MG DAILY 03/20 1000 AC 03/22 PO 0814 Omeprazole 40 MG DAILY AC 03/20 0700 AC 03/22 PO 0534 Oxybutynin Chloride 2.5 MG BID 03/20 1000 AC 03/22 PO 0811 Patient Medication 1 ED .STK-MED ONE 03/22 1307 DC Teaching ED 03/22 1308 Pyridoxine HCl 50 MG DAILY 03/20 1000 AC 03/22 PO 0814 Quetiapine Fumarate 25 MG BID 03/22 1143 AC 03/22 PO 1402 Rasagiline 1 MG DAILY 03/20 1000 AC 03/22 PO 0809 Tamsulosin HCl 0.4 MG DAILY 03/20 1000 AC 03/22 PO 0814 Results Last 48 Hrs of Labs/Mics: Laboratory Tests 03/22/16 0605: CBC w Diff NO MAN DIFF REQ, RBC 4.25 L, MCV 88.0, MCH 30.1, RDW 14.4, MPV 8.1, Gran % 75.9 H, Lymphocytes % 15.7 L, Monocytes % 6.3, Eosinophils % 1.6, Basophils % 0.5, Absolute Granulocytes 3.9, Absolute Lymphocytes 0.8 L, Absolute Monocytes 0.3, Absolute Eosinophils 0.1, Absolute Basophils 0, PUBS MCHC 34.2 03/21/16 0600: Anion Gap 13, Estimated GFR > 60, BUN/Creatinine Ratio 18.8, CBC w Diff NO MAN DIFF REQ, RBC 3.96 L, MCV 87.8, MCH 30.1, RDW 14.2, MPV 7.9, Gran % 79.2 H, Lymphocytes % 12.8 L, Monocytes % 6.1, Eosinophils % 1.5, Basophils % 0.4, Absolute Granulocytes 4.7, Absolute Lymphocytes 0.8 L, Absolute Monocytes 0.4, Absolute Eosinophils 0.1, Absolute Basophils 0, PUBS MCHC 34.3 Assessment/Plan Assessment/Plan Assessment: 1. Mental status changes with possible syncope 2. Parkinson's disease 3. History of Mitchell's esophagus 4. Sinus bradycardia Recommendations: -continue current management for now -Continue to intermittently check orthostatics. -in the absence of any obvious cardiac issues, the patient can likely come off of telemetry. Continue telemetry? No
[2016-03-22 16:52] VITALS: BP 120/70
[2016-03-23 00:17] VITALS: BP 144/80
[2016-03-23 07:59] VITALS: BP 156/70
--- NOTE | 2016-03-23 09:06 | PN- Housestaff ---
Subjective Follow-up For: AMS Tele-Events Since Last Visit: Sinus rhythm/sinus bradycardia Heart rate 55/69 No overnight events Subjective: Patient was seen and examined this morning, he is oriented to time and person, still in [place] with some confused. No overnight events reported by the patient or the nurses. Patient complained of right inner thight pain that is chronic in nature, the pain is getting worse this morning, on examination, there is mild testiculat tenderness. no skin changes. Review of Systems Constitutional: Denies: no symptoms. Neurological/Psychological: Denies: confusion. Objective Last 24 Hrs of Vital Signs/I&O Vital Signs Date Time Temp Pulse Resp B/P Pulse O2 O2 Flow FiO2 Ox Delivery Rate 03/23 1021 62 110/60 03/23 0759 97.3 65 18 156/70 97 Room Air 03/23 0017 97.8 68 18 144/80 98 Room Air 03/22 1652 98.1 71 18 120/70 94 Intake & Output 03/23 1600 03/23 0800 03/23 0000 Intake Total 120 Output Total 300 950 Balance -300 -830 Intake, Oral 120 Output, Urine 300 950 Physical Exam General Appearance: Alert, Cooperative, No Acute Distress Cardiovascular: Regular Rate, Normal S1, Normal S2, No Murmurs Lungs: Clear to Auscultation, Normal Air Movement Abdomen: Normal Bowel Sounds, Soft, No Tenderness Neurological: Normal Gait, Normal Speech, Strength at 5/5 X4 Ext, Normal Tone, Sensation Intact, Cranial Nerves 3-12 NL, Reflexes 2+ Extremities: No Clubbing, No Cyanosis, No Edema Reproductive (MALE) Normal male genitalia, mild right testicular tenderness Assessment/Plan Assessment: Patient is a 80 y/o male with PMH of parkinsonism on carbidopa/levodopa, visual hallucinations on Nuplazide, hypertension and hyperlipidemia, 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 Problem list #AMS/syncopy #Visual hallucination #parkinsonism #prostate cancer #AMS/syncopy -Neurology consulation was obtained, appriciate the recom. -AMS is could be attributed to Nalpazid antipsychotic patient -H&H 12.1/36.3 no drop from previous readings, consider ENT evaluation in case of recurrent epistaxes -orthstate measurment was initially positive, repeated orthostatics was negative -mointor vital signs for any BP drop -f/u echo -troponin and EKG serial are negative -PT evaluation suggest short-term rehabilitation -Anticipated discharge today or tomorrow #Visual hallucination -DC Nuplazide -Seroquel 25 mg BID for hallucination, pancho. after discharge - Dic. jimena strain for palcement #parkinsonism -cont. home medication #prostate cancer -cont. Finasteride pain control with tylenol and oxycodon Diet regular DVT prophylasix:Lovenox Full CODE Problem List: 1. Parkinson disease 2. Altered mental status 3. Epistaxis, recurrent Pain Ratin Pain Location: N/A Pain Goal: Remain pain free Pain Plan: see medication Tomorrow's Labs & Rationales: none
--- NOTE | 2016-03-23 13:48 | PN- Cardiology ---
Subjective Subjective: Cardiac status stable and unchanged. More alert and lucid today. Objective Vital Signs and I&Os Vital Signs Date Time Temp Pulse Resp B/P Pulse O2 O2 Flow FiO2 Ox Delivery Rate 03/23 1021 62 110/60 03/23 0759 97.3 65 18 156/70 97 Room Air 03/23 0017 97.8 68 18 144/80 98 Room Air 03/22 1652 98.1 71 18 120/70 94 03/22 1358 Room Air Intake & Output 03/23 1600 03/23 0800 03/23 0000 03/22 1600 03/22 0800 03/22 0000 Intake Total 120 840 130 250 Output Total 300 950 680 525 300 Balance -300 -830 160 -395 -50 Intake, IV 10 10 Intake, Oral 120 840 120 240 Number 1 Bowel Movements Output, Urine 300 950 680 525 300 Patient 168 lb Weight Current Medications: Current Medications Sig/Mario Start time Last Medication Dose Route Stop Time Status Admin Acetaminophen 650 MG Q4P PRN 03/20 0500 AC PO Acetaminophen 1,000 MG Q8P PRN 03/20 0500 AC IV Atorvastatin Calcium 10 MG 1700 03/20 1700 AC 03/22 PO 1739 Buspirone HCl 5 MG 0400,0900,1500 03/20 1500 AC 03/23 PO 1016 Carbidopa/Levodopa 1 TAB 1500,2100 03/20 1500 AC 03/22 PO 2110 Carbidopa/Levodopa 2 TAB 0400,0900 03/20 1045 AC 03/23 PO 1017 Enoxaparin Sodium 40 MG DAILY 03/20 1000 AC 03/23 SC 1022 Finasteride 5 MG DAILY 03/20 1000 AC 03/23 PO 1021 Lidocaine 15 ML 4 TIMES/DAY PRN 03/20 0545 AC PO Magnesium Oxide 400 MG DAILY 03/20 1000 AC 03/23 PO 1021 Omeprazole 40 MG DAILY AC 03/20 0700 AC 03/23 PO 0430 Oxybutynin Chloride 2.5 MG BID 03/20 1000 AC 03/23 PO 1018 Pyridoxine HCl 50 MG DAILY 03/20 1000 AC 03/23 PO 1021 Quetiapine Fumarate 25 MG BID 03/22 1143 AC 03/23 PO 1021 Rasagiline 1 MG DAILY 03/20 1000 AC 03/23 PO 1033 Tamsulosin HCl 0.4 MG DAILY 03/20 1000 AC 01/06 PO 1021 Results Last 48 Hrs of Labs/Mics: Laboratory Tests 03/23/16 0720: Anion Gap 11, Estimated GFR > 60, BUN/Creatinine Ratio 16.7 03/22/16 0605: CBC w Diff NO MAN DIFF REQ, RBC 4.25 L, MCV 88.0, MCH 30.1, RDW 14.4, MPV 8.1, Gran % 75.9 H, Lymphocytes % 15.7 L, Monocytes % 6.3, Eosinophils % 1.6, Basophils % 0.5, Absolute Granulocytes 3.9, Absolute Lymphocytes 0.8 L, Absolute Monocytes 0.3, Absolute Eosinophils 0.1, Absolute Basophils 0, PUBS MCHC 34.2 Assessment/Plan Assessment/Plan Assessment: 1. Mental status changes with possible syncope 2. Parkinson's disease 3. History of Mitchell's esophagus 4. Sinus bradycardia Recommendations: -continue current management for now -Continue to intermittently check orthostatics. -in the absence of any obvious cardiac issues, the patient can likely come off of telemetry. Continue telemetry? No
[2016-03-23 15:13] VITALS: BP 100/60
--- NOTE | 2016-03-23 16:26 | ULTRASOUND REPORT ---
EXAMINATION: US TESTICULAR CLINICAL INFORMATION: Right-sided testicular pain. Evaluate for orchitis and epididymitis. COMPARISON: None. TECHNIQUE: Real-time sonographic imaging of the bilateral scrotal contents. FINDINGS: Right: The right testicle appears mildly lobular in contour. The right testicle is normal in size and echogenicity and measures 3.1 x 1.8 x 2.3 cm in sagittal, AP and transverse dimensions respectively, corresponding to a volume of 9.1 mL. No focal intratesticular or extratesticular masses are identified. Arterial and venous flow are demonstrated within the right testicle. The right epididymis appears unremarkable. No right-sided hydrocele or varicocele is identified. Left: The left testicle appears mildly lobular in contour. The left testicle is normal in size and echogenicity and measures 3.4 x 2.3 x 2.6 cm in sagittal, AP and transverse dimensions respectively, corresponding to a volume of 14.4 mL. No focal intratesticular or extratesticular masses are identified. Arterial and venous flow are demonstrated within the left testicle. There is a large spermatocele within the left epididymis measuring 2.4 x 1.1 x 1.3 cm. The left epididymis is otherwise unremarkable. There is a trace left-sided hydrocele. No left-sided varicocele is identified. IMPRESSION: No evidence of testicular torsion. Mild lobular contour of the bilateral testicles without focal intratesticular or extratesticular masses. Incidental note is made of a 2.4 x 1.1 x 1.3 cm spermatocele/epididymal head cyst within the left epididymis.
--- NOTE | 2016-03-23 18:06 | PN- Att Addend ---
Attending Addendum Attending Brief Note Patient looks and feels better daughter still at his side patient will today he was at [facility], the chest posy belt will be discontinued so he can go to short-term rehabilitation this would happen either later on today or early tomorrow. I will follow the patient at rehabilitation. See the discharge summary and W 10 and CMR, Current Medications Sig/Mario Start time Last Medication Dose Route Stop Time Status Admin Acetaminophen 650 MG Q4P PRN 03/20 0500 AC PO Acetaminophen 1,000 MG Q8P PRN 03/20 0500 AC IV Atorvastatin Calcium 10 MG 1700 03/20 1700 AC 03/22 PO 1739 Buspirone HCl 5 MG 0400,0900,1500 03/20 1500 AC 03/23 PO 1626 Carbidopa/Levodopa 1 TAB 1500,2100 03/20 1500 AC 03/23 PO 1626 Carbidopa/Levodopa 2 TAB 0400,0900 03/20 1045 AC 03/23 PO 1017 Enoxaparin Sodium 40 MG DAILY 03/20 1000 AC 03/23 SC 1022 Finasteride 5 MG DAILY 03/20 1000 AC 03/23 PO 1021 Lidocaine 15 ML 4 TIMES/DAY PRN 03/20 0545 AC PO Magnesium Oxide 400 MG DAILY 03/20 1000 AC 03/23 PO 1021 Omeprazole 40 MG DAILY AC 03/20 0700 AC 03/23 PO 0430 Oxybutynin Chloride 2.5 MG BID 03/20 1000 AC 03/23 PO 1018 Pyridoxine HCl 50 MG DAILY 03/20 1000 AC 03/23 PO 1021 Quetiapine Fumarate 25 MG BID 03/22 1143 AC 03/23 PO 1021 Rasagiline 1 MG DAILY 03/20 1000 AC 03/23 PO 1033 Tamsulosin HCl 0.4 MG DAILY 03/20 1000 AC 03/23 PO 1021 Laboratory Tests 03/23/16 0720: Anion Gap 11, Estimated GFR > 60, BUN/Creatinine Ratio 16.7 Vital Signs Date Time Temp Pulse Resp B/P Pulse O2 O2 Flow FiO2 Ox Delivery Rate 03/23 1513 96.9 67 18 100/60 95 Room Air 03/23 1021 62 110/60 Intake & Output 03/23 1600 Intake Total 240 Output Total 200 Balance 40 Intake, Oral 240 Output, Urine 200
[2016-03-23 23:00] VITALS: BP 130/72
[2016-03-24 07:57] LABS: ABSOLUTE BASOPHIL COUNT 0 /CUMM (0.0-0.2); ABSOLUTE EOSINOPHIL COUNT 0.1 /CUMM (0.0-0.7); ABSOLUTE GRANULOCYTE CT 3.8 /CUMM (1.4-6.5); ABSOLUTE LYMPH COUNT 0.7 /CUMM (1.2-3.4); ABSOLUTE MONOCYTE COUNT 0.3 /CUMM (0.10-0.60); BASOPHIL % 0.5 % (0.0-2.0); EOSINOPHIL % 1.8 % (0-5); GRANULOCYTE % 77.2 % (42.2-75.2); HEMATOCRIT 37.2 % (42-52); MEAN CORPUSCULAR HGB CONC 34.2 G/DL (33.0-37.0); MEAN CORPUSCULAR VOLUME 87.9 FL (80.0-94.0); MEAN PLATELET VOLUME 7.9 FL (7.4-10.4); PLATELET COUNT 165 /CUMM (130-400); RBC DISTRIBUTION WIDTH 14.5 % (11.5-14.5); RED BLOOD CELL CT 4.24 /CUMM (4.70-6.10); WHITE BLOOD CELL COUNT 4.9 /CUMM (4.8-10.8)
[2016-03-24 08:19] VITALS: BP 122/70
--- NOTE | 2016-03-24 13:41 | NUR ---
PHYSICAL THERAPY: Pt REFUSING TREATMENT STATING "I AM WAITING FOR MY SISTER, CAN YOU FIND HER FOR ME?" HE IS VERY CONFUSED AT THIS TIME AND NOT APPROPRIATE FOR PT. WILL F/U APPROPIATE.
[2016-03-24 16:18] VITALS: BP 149/78
--- NOTE | 2016-03-24 19:35 | PN- Housestaff ---
Subjective Follow-up For: Altered mental status Complaints: Right hip and groin pain Subjective: Patient was seen and examined. He is oriented to time and person, but not to place. No overnight events reported by the patient or the nurses. Patient still has right inner thight pain (chronic), Testicular ultrasound yesterday was negative for torsion. Has normal appetite and denies abdominal pain, nausea, chest pain Review of Systems Constitutional: Reports: see HPI. Objective Last 24 Hrs of Vital Signs/I&O Vital Signs Date Time Temp Pulse Resp B/P Pulse O2 O2 Flow FiO2 Ox Delivery Rate 03/24 1618 98.4 72 16 149/78 97 Room Air 03/24 1011 90/50 03/24 0819 98.2 70 18 122/70 97 Room Air 03/23 2300 97.9 68 18 130/72 95 Room Air Intake & Output 03/24 1600 03/24 0800 03/24 0000 Intake Total 800 240 300 Output Total 1200 500 300 Balance -400 -260 0 Intake, Oral 800 240 300 Output, Urine 1200 500 300 Physical Exam General Appearance: Alert, No Acute Distress, Oriented to time and person, not to place Skin: No Rashes HEENT: Atraumatic, PERRLA, EOMI, Mucous Membr. moist/pink Neck: Supple, No JVD, No thryomegaly Lymphatic: Cervical nl Cardiovascular: Regular Rate, Normal S1, Normal S2 Lungs: Clear to Auscultation, Normal Air Movement Abdomen: Normal Bowel Sounds, Soft, No Tenderness, No Hepatospenomegaly Neurological: Normal Speech, Normal Tone, Sensation Intact Extremities: No Edema Vascular: Normal Pulses, Pulses Symmetrical Current Medications: Current Medications Sig/Mario Start time Last Medication Dose Route Stop Time Status Admin Acetaminophen 650 MG .STK-MED ONE 03/24 06 DC PO 03/24 0618 Acetaminophen 650 MG Q4P PRN 03/20 0500 AC PO Acetaminophen 1,000 MG Q8P PRN 03/20 0500 AC IV Atorvastatin Calcium 10 MG 1700 03/20 1700 AC 03/24 PO 1624 Buspirone HCl 5 MG 0400,0900,1500 03/20 1500 AC 03/24 PO 1624 Carbidopa/Levodopa 1 TAB 1500,2100 03/20 1500 AC 03/24 PO 2105 Carbidopa/Levodopa 2 TAB 0400,0900 03/20 1045 AC 03/24 PO 1004 Enoxaparin Sodium 40 MG DAILY 03/20 1000 AC 03/24 SC 1005 Finasteride 5 MG DAILY 03/20 1000 AC 03/24 PO 1004 Lidocaine 15 ML 4 TIMES/DAY PRN 03/20 0545 AC PO Magnesium Oxide 400 MG DAILY 03/20 1000 AC 03/24 PO 1004 Omeprazole 40 MG DAILY AC 03/20 0700 AC 03/24 PO 0505 Oxybutynin Chloride 2.5 MG BID 03/20 1000 AC 03/24 PO 2105 Pyridoxine HCl 50 MG DAILY 03/20 1000 AC 03/24 PO 1004 Quetiapine Fumarate 25 MG BID 03/22 1143 AC 03/24 PO 2105 Rasagiline 1 MG DAILY 03/20 1000 AC 03/24 PO 1005 Tamsulosin HCl 0.4 MG DAILY 03/20 1000 AC 03/23 PO 1021 Last 24 Hrs of Lab/Eh Results Last 24 Hrs of Labs/Mics: Laboratory Tests 03/24/16 0630: Anion Gap 14, Estimated GFR > 60, BUN/Creatinine Ratio 22.2, CBC w Diff NO MAN DIFF REQ, RBC 4.24 L, MCV 87.9, MCH 30.0, RDW 14.5, MPV 7.9, Gran % 77.2 H, Lymphocytes % 14.5 L, Monocytes % 6.0, Eosinophils % 1.8, Basophils % 0.5, Absolute Granulocytes 3.8, Absolute Lymphocytes 0.7 L, Absolute Monocytes 0.3, Absolute Eosinophils 0.1, Absolute Basophils 0, PUBS MCHC 34.2 03/24/16 0350: Urine Color YEL, Urine Clarity CLEAR, Urine pH 6.0, Ur Specific [place] 1.025, Urine Protein NEG, Urine Ketones NEG, Urine Nitrite NEG, Urine Bilirubin NEG, Urine Urobilinogen 0.2, Ur Leukocyte Esterase NEG, Ur Microscopic EXAM NOT REQUIRED, Urine Hemoglobin NEG, Urine Glucose NEG Assessment/Plan Assessment: Patient is a 80 y/o male with PMH of parkinsonism on carbidopa/levodopa, visual hallucinations on Nuplazide, hypertension and hyperlipidemia, 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 Problem list #AMS/syncopy -Neurology consulation was obtained, appriciate the recommendation. -AMS is could be attributed to Nalpazid antipsychotic patient -H&H 12.36.3 no drop from previous readings -orthstatic easurment was initially positive, repeated orthostatics was negative -mointor vital signs for any BP drop -f/u echo -troponin and EKG serial are negative -PT evaluation suggest short-term rehabilitation -Anticipated discharge to [facility] tomorrow #Visual hallucination -DC Nuplazide -Seroquel 25 mg BID for hallucination, pancho. after discharge - Patient has been calm today -Will continue to redirect as needed #parkinsonism -cont. home medication #prostate cancer -cont. Finasteride pain control with tylenol and oxycodon Diet regular DVT prophylasix:Lovenox Full CODE Problem List: 1. Parkinson disease Pain Ratin Pain Location: Right hip Pain Goal: Pain 7 or less Pain Plan: Tylenol PRN Tomorrow's Labs & Rationales: Not needed
[2016-03-24 23:00] VITALS: BP 140/60
[2016-03-25 08:21] VITALS: BP 139/76
--- NOTE | 2016-03-25 10:05 | PN- Housestaff ---
Subjective Follow-up For: AMS Subjective: patient was seen and examined, reported overnight mild epistaxes. no complaint at the moment. Review of Systems Constitutional: Denies: no symptoms. Objective Last 24 Hrs of Vital Signs/I&O Vital Signs Date Time Temp Pulse Resp B/P Pulse O2 O2 Flow FiO2 Ox Delivery Rate 03/25 0949 1247/54 03/25 0821 98.7 72 17 139/76 97 Room Air 03/24 2300 98.8 71 18 140/60 96 Room Air 03/24 1618 98.4 72 16 149/78 97 Room Air 03/24 1011 90/50 Intake & Output 03/25 1600 03/25 0800 03/25 0000 Intake Total 50 200 Output Total 100 220 Balance -50 -20 Intake, Oral 50 200 Number 1 Bowel Movements Output, Urine 100 220 Physical Exam General Appearance: Alert, Cooperative, No Acute Distress Cardiovascular: Regular Rate, Normal S1, Normal S2, No Murmurs Lungs: Clear to Auscultation, Normal Air Movement Abdomen: Normal Bowel Sounds, Soft, No Tenderness Neurological: Normal Gait, Normal Speech, Strength at 5/5 X4 Ext, Normal Tone, Sensation Intact, Cranial Nerves 3-12 NL, Reflexes 2+ Extremities: No Clubbing, No Cyanosis, No Edema Assessment/Plan Assessment: Patient is a 80 y/o male with PMH of parkinsonism on carbidopa/levodopa, visual hallucinations on Nuplazide, hypertension and hyperlipidemia, 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 Problem list #AMS/syncopy -Neurology consulation was obtained, appriciate the recommendation. -AMS is could be attributed to Nalpazid antipsychotic patient -H&H 12.1/36.3 no drop from previous readings -orthstatic easurment was initially positive, repeated orthostatics was negative -mointor vital signs for any BP drop -f/u echo -troponin and EKG serial are negative -PT evaluation suggest short-term rehabilitation -Anticipated discharge to [facility] tomorrow #Visual hallucination -DC Nuplazide -Seroquel 25 mg BID for hallucination, pancho. after discharge - Patient has been calm today -Will continue to redirect as needed #parkinsonism -cont. home medication #prostate cancer -cont. Finasteride pain control with tylenol and oxycodon Diet regular DVT prophylasix:Lovenox Full CODE Problem List: 1. Parkinson disease 2. Altered mental status Pain Ratin Pain Location: n/a Pain Goal: Remain pain free Pain Plan: see indication Tomorrow's Labs & Rationales: cbc, cmp
[2016-03-25 15:45] VITALS: BP 116/56
--- NOTE | 2016-03-25 17:24 | NUR ---
PT IS STABLE. A+O X3, FORGETFUL. ALARM IS ON. DENIES DIZZINESS OR PALPITATIONS.
[2016-03-26 01:19] VITALS: BP 124/80
[2016-03-26 08:20] VITALS: BP 146/68
--- NOTE | 2016-03-26 09:18 | PN- Housestaff ---
Subjective Follow-up For: Altered Mental status Subjective: Patient was seen and examined this morning, no overnight events reported by the patient or the nurses. No acute distress, vital signs are stable. Patient is for discharge today Review of Systems Constitutional: Denies: no symptoms. Objective Last 24 Hrs of Vital Signs/I&O Vital Signs Date Time Temp Pulse Resp B/P Pulse O2 O2 Flow FiO2 Ox Delivery Rate 03/26 819 98.8 57 18 146/68 97 Trach Mask 03/26 0119 98.1 72 18 124/80 96 Room Air 03/25 1545 98.2 77 18 116/56 96 Intake & Output 03/26 1600 03/26 0800 03/26 0000 Intake Total 240 720 Output Total 500 900 Balance -260 -180 Intake, Oral 240 720 Output, Urine 500 900 Physical Exam General Appearance: Alert, Oriented X3, Cooperative, No Acute Distress Cardiovascular: Regular Rate, Normal S1, Normal S2, No Murmurs Lungs: Clear to Auscultation, Normal Air Movement Abdomen: Normal Bowel Sounds, Soft, No Tenderness Neurological: Normal Gait, Normal Speech, Strength at 5/5 X4 Ext, Normal Tone, Sensation Intact, Cranial Nerves 3-12 NL, Reflexes 2+ Extremities: No Clubbing, No Cyanosis, No Edema Vascular: Normal Pulses Assessment/Plan Assessment: Patient is a 80 y/o male with PMH of parkinsonism on carbidopa/levodopa, visual hallucinations on Nuplazide, hypertension and hyperlipidemia, 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 Patient is for discharge today to a short-term rehabilitation Problem list #AMS/syncopy -Neurology consulation was obtained, appriciate the recommendation. -AMS is could be attributed to Nalpazid antipsychotic patient -H&H is stable -orthstatic easurment was initially positive, repeated orthostatics was negative -mointor vital signs for any BP drop -Echocardiogram in 03/26/16 -Normal left ventricular ejection fraction estimated at 60-65%. 1. This was a technically difficult and limited examination. 2. MIld to moderate aortic sclerosis is present with no valvular stenosis or insufficiency. 3. Mitral leaflet thickening is present with minimal mitral insufficiency. 4. There is no pericardial fluid present. 5. The left ventricular chamber size and systolic function appear normal 6. Minimal tricuspid insufficiency is present. The RV systolic pressure could not be accurately assessed. 7. A prominent moderator band is noted in the RV cavity. -troponin and EKG serial are negative -PT evaluation suggest short-term rehabilitation -Anticipated discharge to [facility] tomorrow #Visual hallucination -DC Nuplazide -Seroquel 25 mg BID for hallucination, pancho. after discharge -She had some episodes of confusion over his hospital stay, had a posay for a day, patient is doing okay now without any kwesi for the last 3 days. #parkinsonism -cont. home medication -PT evaluation with recommendation for short-term rehabilitation #prostate cancer -cont. Finasteride -Patient had some right testicular pain, resolved, testicular ultrasound was obtained that showed No evidence of testicular torsion. Mild lobular contour of the bilateral testicles without focal intratesticular or extratesticular masses. Incidental note is made of a 2.4 x 1.1 x 1.3 cm spermatocele/epididymal head cyst within the left epididymis. pain control with tylenol and oxycodon Diet regular DVT prophylasix:Lovenox Full CODE Problem List: 1. Parkinson disease 2. Altered mental status 3. Epistaxis, recurrent Pain Ratin Pain Location: n/a Pain Goal: Remain pain free Pain Plan: see medication Tomorrow's Labs & Rationales: n/a
--- NOTE | 2016-03-26 09:40 | ECHOCARDIOGRAM REPORT ---
ANGELO DUBON Age: 80 : 1935 Gender: M Exam Date: 03/23/2016 17:52 Exam Location: [facility] Ht (in): 76 Wt (lb): 168 BSA: 2.01 BP: 100 / 60 Ordering Physician: NICHOLAS DEVLIN MD Referring Physician: NICHOLAS DEVLIN MD Technologist: [facility] Room Number: 180-01 Indications: PRESYNCOPE/SYNCOPE Rhythm: Sinus Technical Quality: Fair, Technically difficult study FINDINGS Left Ventricle Normal size left ventricle. No obvious regional wall motion abnormalities. Normal left ventricular ejection fraction estimated at 60-65%. Right Ventricle Right ventricle not well visualized, grossly normal. Right Atrium Normal right atrial size. Left Atrium Left atrial size at the upper limits of normal. Mitral Valve Mitral valve thickened. Trace mitral regurgitation. Aortic Valve Trileaflet aortic valve. Diffuse thickening (sclerosis) of the aortic valve cusps without reduced excursion. No aortic stenosis. No aortic regurgitation. Tricuspid Valve Tricuspid valve not well visualized, grossly normal. Trace tricuspid regurgitation. Pulmonic Valve Pulmonic valve not well visualized. Pericardium No pericardial effusion. Great Vessels Aortic root and proximal ascending aorta not well visualized, grossly normal. CONCLUSIONS 1. This was a technically difficult and limited examination. 2. MIld to moderate aortic sclerosis is present with no valvular stenosis or insufficiency. 3. Mitral leaflet thickening is present with minimal mitral insufficiency. 4. There is no pericardial fluid present. 5. The left ventricular chamber size and systolic function appear normal 6. Minimal tricuspid insufficiency is present. The RV systolic pressure could not be accurately assessed. 7. A prominent moderator band is noted in the RV cavity. Otf Ojeda M.D. (Electronically Signed) Final Date: 26 March 2016 09:39 MEASUREMENTS (Male / Female) Normal Values 2D ECHO LV Diastolic Diameter PLAX 4.4 cm 4.2 - 5.9 / 3.9 - 5.3 cm LV Systolic Diameter PLAX 3.0 cm 2.1 - 4.0 cm LV Fractional Shortening PLAX 31.8 % 25 - 46 % LV Ejection Fraction 2D Teich 60.1 % IVS Diastolic Thickness 1.0 cm LVPW Diastolic Thickness 1.0 cm LV Relative Wall Thickness 0.5 LVOT Diameter 2.1 cm Aortic Root Diameter 3.5 cm LA Systolic Diameter LX 2.5 cm 3.0 - 4.0 / 2.7 - 3.8 cm LA Volume 18.0 cm 18 - 58 / 22 - 52 cm M-MODE Aortic Root Diameter MM 3.5 cm LA Systolic Diameter MM 3.0 cm 3.0 - 4.0 / 2.7 - 3.8 cm LA Ao Ratio MM 0.9 DOPPLER AV Peak Velocity 116.0 cm/s AV Peak Gradient 5.4 mmHg AV Mean Velocity 87.7 cm/s AV Mean Gradient 3.0 mmHg AV Velocity Time Integral 26.0 cm LVOT Peak Velocity 83.9 cm/s LVOT Peak Gradient 2.8 mmHg AV Area Cont Eq pk 2.5 cm MV Peak Velocity 86.9 cm/s MV Peak Gradient 3.0 mmHg MV Mean Velocity 58.3 cm/s MV Mean Gradient 2.0 mmHg Mitral E Point Velocity 63.2 cm/s Mitral A Point Velocity 87.4 cm/s Mitral E to A Ratio 0.7 MV PHT Velocity 81.4 cm/s MV Deceleration Stutsman 257.0 cm/s MV Pressure Half Time 95.0 ms MV Area PHT 2.3 cm MV Deceleration Time 331.0 ms PV Peak Velocity 105.5 cm/s PV Peak Gradient 4.5 mmHg LV E' Lateral Velocity 9.0 cm/s Mitral E to LV E' Lateral Ratio 7.0 LV E' Septal Velocity 6.5 cm/s Mitral E to LV E' Septal Ratio 9.7
--- NOTE | 2016-03-26 11:05 | PN- Att Addend ---
Attending Addendum Attending Brief Note No major changes over the weekend. Patient off restraints. Mental status about the same bed vital signs are stable no fever. No changes on physical. Going to [facility] today for short-term rehabilitation see discharge summary, W 10, and CMR I will follow patient over there. Current Medications Sig/Mario Start time Last Medication Dose Route Stop Time Status Admin Acetaminophen 650 MG Q4P PRN 03/20 0500 AC PO Acetaminophen 1,000 MG Q8P PRN 03/20 0500 AC IV Atorvastatin Calcium 10 MG 1700 03/20 1700 AC 03/25 PO 1649 Buspirone HCl 5 MG 0400,0900,1500 03/20 1500 AC 03/26 PO 1034 Carbidopa/Levodopa 1 TAB 1500,2100 03/20 1500 AC 03/25 PO 2055 Carbidopa/Levodopa 2 TAB 0400,0900 03/20 1045 AC 03/26 PO 1036 Enoxaparin Sodium 40 MG DAILY 03/20 1000 AC 03/26 SC 1043 Finasteride 5 MG DAILY 03/20 1000 AC 03/26 PO 1041 Lidocaine 15 ML 4 TIMES/DAY PRN 03/20 0545 AC PO Magnesium Oxide 400 MG DAILY 03/20 1000 AC 03/26 PO 1040 Omeprazole 40 MG DAILY AC 03/20 0700 AC 03/26 PO 0617 Oxybutynin Chloride 2.5 MG BID 03/20 1000 AC 03/26 PO 1037 Pyridoxine HCl 50 MG DAILY 03/20 1000 AC 03/26 PO 1041 Quetiapine Fumarate 25 MG BID 03/22 1143 AC 03/26 PO 1049 Rasagiline 1 MG DAILY 03/20 1000 AC 03/26 PO 1051 Tamsulosin HCl 0.4 MG DAILY 03/20 1000 AC 03/26 PO 1040 Vital Signs Date Time Temp Pulse Resp B/P Pulse O2 O2 Flow FiO2 Ox Delivery Rate 03/26 1040 98.8 57 18 146/68 03/26 0820 98.8 57 18 146/ 97 Trach Mask
[2016-03-26 11:45] VITALS: BP 146/68
== END 2016-03-26 12:45 | DRG 312 ==
LOC: ERH 02:00 → 1NO 04:39 → ERHI 04:39 → 1NO 12:58
PROVIDERS: Pediatrics; Student in an Organized Health Care Education/Training Program; ADMIT Internal Medicine
DX: R55 Syncope and collapse (principal); C15.9 Malignant neoplasm of esophagus, unspecified; G20 Parkinson's disease; R00.1 Bradycardia, unspecified; K21.9 Gastro-esophageal reflux disease without esophagitis; K22.70 Barrett's esophagus without dysplasia; Z85.46 Personal history of malignant neoplasm of prostate; R04.0 Epistaxis; I10 Essential (primary) hypertension; E78.5 Hyperlipidemia, unspecified
CPT/HCPCS: 1NSP; 36415; 80307; 81003; 82436; 93005; 93010; 93306; 97001-GP; 97110-GO; 97116-GO; 97162-GP; 97530-GO; G0480; J0131; J1650

== ENCOUNTER 2016-05-10 12:04 | Emergency (ER) | payer OTHER, MEDICARE ==
[~2016-05-10] VITALS: Ht 190.5 cm; Wt 76.2 kg
[~2016-05-10 12:04] MED LIST changes: +NUPLAZID17 MG PO; +SEROQUEL25 M1 PO; +STOOL SOFTENER50 MG PO
[2016-05-10 12:12] VITALS: BP 123/73
--- NOTE | 2016-05-10 12:52 | ED MVC/FALL/TRAUMA COMPLAINT ---
History of Present Illness General Chief Complaint: Fall Stated Complaint: FALL Source: patient, family, old records Exam Limitations: no limitations Vital Signs & Intake/Output Vital Signs & Intake/Output Vital Signs Date Time Temp Pulse Resp B/P Pulse O2 O2 Flow FiO2 Ox Delivery Rate 05/10 1356 100 Room Air 05/10 1212 97.6 60 18 123/73 99 Room Air Allergies Coded Allergies: aspirin (BLEEDING- [facility]EVENS'S 11/30/15) Reconcile Medications Acetaminophen (Tylenol) 325 MG TABLET 1 TAB PO PRN PAIN (Reported) Buspirone HCl 5 MG TABLET 1 TAB PO TID ANXIETY (Reported) Carbidopa/Levodopa (Carbidopa-Levo ER 50-200 Tab) 50 MG-200 MG TABLET.ER 2 TAB PO PARKINSONS (Reported) 2 TAB AT 0400 AND 2 TABS AT 0900 Carbidopa/Levodopa (Carbidopa-Levo ER 50-200 Tab) 50 MG-200 MG TABLET.ER 1 TAB PO PARKINSONS (Reported) 1 TAB AT 1500 AND 1 TAB 9PM Docusate Sodium (Stool Softener) 50 MG CAPSULE 1 TAB PO DAILY STOOL SOFTENER (Reported) Finasteride 5 MG TABLET 1 TAB PO DAILY PROSTATE (Reported) Gluc 2KCL/Chondr/Yulissa Hy/Hy AC (Glucosamine & Chondroitin Cap) 1 EACH CAPSULE 1,500 MG PO DAILY SUPPLEMENT (Reported) Lovastatin 40 MG TABLET 1 TAB PO DAILY CHOLESTEROL (Reported) with food Magnesium Oxide 400 MG TABLET 1 TAB PO DAILY SUPPLEMENT (Reported) Allons-3S/Dha/Epa/Fish Oil (Fish Oil 1,200 MG Softgel) 1 EACH CAPSULE 2 CAP PO DAILY SUPPLEMENT (Reported) Omeprazole 40 MG CAPSULE.DR 1 CAP PO BID GI (Reported) Pyridoxine HCl (Vitamin B-6) 50 MG TABLET 1 TAB PO DAILY SUPPLEMENT (Reported ) Quetiapine Fumarate (Seroquel) 25 MG TABLET 1 TAB PO BID HALLUCINATIONS, AGITATION Rasagiline Mesylate (Azilect) 1 MG TABLET 1 TAB PO DAILY PARKINSON (Reported) Solifenacin Succinate (Vesicare) 5 MG TABLET 1 TAB PO DAILY BLADDER (Reported ) Tamsulosin HCl (Flomax) 0.4 MG CAP.ER.24H 1 CAP PO DAILY PROSTATE (Reported) Trazodone HCl 50 MG TABLET 0.5 TAB PO TID UNKNOWN (Reported) Triage Note: PT TO TRIAGE WITH HIS SISTER, PT HAS PARKINSONS AND HIS SISTER STATES THAT HE ALWAYS STEPS AWAY FROM HIS WALKER AND FALLS, PT FELL THIS AM AND HURT HIS L KNEE AND R HAND, ALSO STATES THAT HE HIT THE L SIDE OF HIS HEAD ON FURNITURE , DENIES BLOOD THINNERS OR LOC. REFUSES MEDS AT TRIAGE Triage Nurses Notes Reviewed? yes HPI: Patient is a 80-year-old male presents complaining of right wrist pain, left knee pain, head pain status post fall. Patient was reaching to pull down a window shade when he accidentally fell. Patient did not have his walker with him at the time. Pain is moderate, worsens with movement and palpation. Patient has not taken any medication for his symptoms prior to arrival. Patient denies loss of consciousness, numbness, decreased range of motion. (ART DOUGHERTY) Past History Travel History Traveled to [place] past 21 day No Medical History Any Pertinent Medical History? see below for history Neurological: Parkinson's disease EENT: NONE Cardiovascular: hyperlipidemia Respiratory: NONE Gastrointestinal: GERD Hepatic: NONE Renal: NONE Musculoskeletal: NONE Psychiatric: NONE Endocrine: NONE Blood Disorders: NONE Cancer(s): NONE MANAGER FILM/Reproductive: NONE History of MRSA: No History of VRE: No History of CDIFF: No Influenza Vaccine: 12/31/15 Surgical History Surgical History: non-contributory Psychosocial History Who do you live with Patient/Self What is your primary language [place] Tobacco Use: Never used ETOH Use: denies use Illicit Drug Use: denies illicit drug use Family History Family History, If Any: FATHER Alzheimer's disease Hx Contributory? No (ART DOUGHERTY) Review of Systems Review of Systems Constitutional: Denies: chills, fever. Eyes: Reports: blurred vision (chronic, worsening). Ears, Nose, Throat, Mouth: Reports: no symptoms. Respiratory: Denies: cough, short of breath. Cardiovascular: Denies: chest pain, syncope. Gastrointestinal/Abdominal: Denies: abdominal pain, vomiting. Genitourinary: Reports: no symptoms. Musculoskeletal: Reports: see HPI. Denies: back pain, neck pain. Skin: Reports: no symptoms. Neurological/Psychological: Reports: headache. Denies: confusion, numbness. (ART DOUGHERTY) Physical Exam Physical Exam General Appearance: well developed/nourished, alert, awake Head: ABRASION TO LEFT CHEEK AND LEFT TEMPORAL AREA. mILD TENDERNESS. nO PALPABLE STEP-OFFS OR DEFORMITIES. Eyes: Bilateral: normal appearance, PERRL, EOMI. Ears, Nose, Throat, Mouth: hearing grossly normal, moist mucous membrane Neck: normal inspection, supple, full range of motion, no midline tenderness, NO PARASPINAL TENDERNESS. Respiratory: normal breath sounds, chest non-tender, no respiratory distress, lungs clear Cardiovascular: regular rate/rhythm Peripheral Pulses: 2+ radial (R), 2+ radial (L) Gastrointestinal: soft, non-tender Extremities: TENDERNESS RIGHT DISTAL RADIUS. fULL RANGE OF MOTION. tENDERNESS LEFT ANTERIOR KNEE IN THE MEDIAL JOINT SPACE AND OVER THE PATELLA. aBRASION ANTERIORLY. Neurologic/Psych: awake, alert, oriented x 3, channeler II-XII nml as tested Skin: warm/dry Core Measures ACS in differential dx? No Severe Sepsis Present: No Septic Shock Present: No (REUBEN NICHOLAS,ART) Progress Differential Diagnosis: abd injury, C/T/L spine injury, ext injury, ICH, spinal cord injury Plan of Care: Orders Procedure Date/time Status CT HEAD WO IV CONTRAST 05/10 1258 Active 05/10/16 1410: Results discussed with patient and his family member. Now reporting chronic deformity to left thumb. Nontender. Results reviewed from x- ray 12/2015, no acute fracture. Will provide information for hand specialist follow up. Discussed with and seen by Dr. Kirby. (REUBEN NICHOLAS,ART) Diagnostic Imaging: Viewed by Me: Radiology Read, CT Scan. Discussed w/RAD: Radiology Read, CT Scan. Radiology Impression: PATIENT: ANGELO DUBON PRESENT AGE: 80 PATIENT ACCOUNT NO: [id number] : 37 LOCATION: [facility] ORDERING PHYSICIAN: ART NICHOLAS SERVICE DATE: 05/10/16-1258 EXAM TYPE: RAD - XRY-WRIST COMPLETE-RIGHT EXAMINATION: XR WRIST, RIGHT CLINICAL INFORMATION: Right wrist tenderness after fall. Evaluate for fracture. COMPARISON: None TECHNIQUE: Right wrist, 4 views. FINDINGS: The distal radius, ulna and radioulnar joint are intact. 0.5 cm sclerotic focus in the distal radial metaphysis is compatible with a bone island. Carpal bones have normal shape, position and alignment. No evidence of scaphoid or triquetral fracture. The carpal joint spaces are maintained. The metacarpals are unremarkable. No focal soft tissue swelling. IMPRESSION: No evidence of fracture or malalignment at the right wrist. DICTATED BY: GEO ROBERTO MD DATE/TIME DICTATED:05/10/161328 YARDAGE CONTROL OPERATOR FORMING:FLAKITA DATE/TIME TRANSCRIBED:05/10/161328 CONFIDENTIAL, DO NOT COPY WITHOUT APPROPRIATE AUTHORIZATION. <Electronically signed in Other Vendor System> SIGNED BY: GEO ROBERTO MD 05/10/161333, PATIENT: ANGELO DUBON PRESENT AGE: 80 PATIENT ACCOUNT NO: [id number] : 37 LOCATION: [facility] ORDERING PHYSICIAN: ART NICHOLAS SERVICE DATE: 05/10/16 EXAM TYPE: RAD - XRY-KNEE COMPLETE LEFT EXAMINATION: XR KNEE, LEFT CLINICAL INFORMATION: Fall with left knee pain and tenderness. COMPARISON: None TECHNIQUE: Four views of the left knee. FINDINGS: No fracture or subluxation. Compartmental joint spaces are maintained. Tiny marginal osteophytes at the patellofemoral compartment. No joint effusion. The soft tissues are unremarkable. IMPRESSION: No fracture or malalignment. Minimal degenerative change. DICTATED BY: EDUARDO GAO MD DATE/TIME DICTATED:05/10/161329 YARDAGE CONTROL OPERATOR FORMING:FLAKITA DATE/TIME TRANSCRIBED:1329 CONFIDENTIAL, DO NOT COPY WITHOUT APPROPRIATE AUTHORIZATION. < Electronically signed in Other Vendor System> SIGNED BY: EDUARDO GAO MD 05/10/16 1335, PATIENT: ANGELO DUBON PRESENT AGE: 80 PATIENT ACCOUNT NO: [id number] : 37 LOCATION: [facility] ORDERING PHYSICIAN: ART NICHOLAS SERVICE DATE: 05/10/16 EXAM TYPE: CAT - CT HEAD WO IV CONTRAST EXAMINATION: CT HEAD WITHOUT CONTRAST CLINICAL INFORMATION: Fall with headache. Left-sided head impact. COMPARISON: TECHNIQUE: Contiguous axial imaging was performed from the skull base to vertex without intravenous contrast. DLP: 672 mGy-cm. FINDINGS: There is no evidence of acute intracranial hemorrhage or territorial infarction. No abnormal mass effect or midline shift is seen. Rapp to white matter differentiation is well preserved. No extra-axial fluid collections are identified. No hydrocephalus. Proportional prominence of the ventricles and sulcal spaces is consistent with mild volume loss. There is no abnormal attenuation within the brain parenchyma. Mild ectasia of the M1 segment of the left middle cerebral artery is again noted. The osseous structures and soft tissues are normal. The mastoid air cells and visualized portions of the paranasal sinuses are well aerated. IMPRESSION: No acute intracranial pathology. DICTATED BY: EDUARDO GAO MD DATE/TIME DICTATED:05/10/161346 YARDAGE CONTROL OPERATOR FORMING:FLAKITA DATE/ TIME TRANSCRIBED:05/10/161346 CONFIDENTIAL, DO NOT COPY WITHOUT APPROPRIATE AUTHORIZATION. <Electronically signed in Other Vendor System> SIGNED BY: EDUARDO GAO MD 05/10/16 5081 (ART DOUGHERTY) Departure Departure Disposition: HOME OR SELF CARE Condition: Stable Clinical Impression Primary Impression: Contusion of knee, left Secondary Impressions: Closed head injury, Contusion of wrist, right Referrals: DAWIT HILL,MARIANNE LACEY MD,GATO (PCP/Family) Additional Instructions: Follow-up with your primary doctor next week for further evaluation. Take Tylenol as directed. He may also follow up with Dr. Alfaro(hand specialist) regarding the chronic deformity to the left thumb, call for appointment. Return to emergency department if numbness, weakness, pain uncontrollable, or worsening of symptoms. Departure Forms: Customer Survey General Discharge Information (ART DOUGHERTY) PA/OPERATIONAL RISK ANALYST Co-Sign Statement Statement: ED Attending supervision documentation- [X] I saw and evaluated the patient. I have also reviewed all the pertinent lab results and diagnostic results. I agree with the findings and the plan of care as documented in the PA's/OPERATIONAL RISK ANALYST's documentation. [] I have reviewed the ED Record and agree with the PA's/OPERATIONAL RISK ANALYST's documentation. [] Additions or exceptions (if any) to the PAs/OPERATIONAL RISK ANALYST's note and plan are summarized below: [] (MELY HILL,RUSSELL Steele)
--- NOTE | 2016-05-10 13:34 | RADIOLOGY REPORT ---
EXAMINATION: XR WRIST, RIGHT CLINICAL INFORMATION: Right wrist tenderness after fall. Evaluate for fracture. COMPARISON: None TECHNIQUE: Right wrist, 4 views. FINDINGS: The distal radius, ulna and radioulnar joint are intact. 0.5 cm sclerotic focus in the distal radial metaphysis is compatible with a bone island. Carpal bones have normal shape, position and alignment. No evidence of scaphoid or triquetral fracture. The carpal joint spaces are maintained. The metacarpals are unremarkable. No focal soft tissue swelling. IMPRESSION: No evidence of fracture or malalignment at the right wrist.
--- NOTE | 2016-05-10 13:35 | RADIOLOGY REPORT ---
EXAMINATION: XR KNEE, LEFT CLINICAL INFORMATION: Fall with left knee pain and tenderness. COMPARISON: None TECHNIQUE: Four views of the left knee. FINDINGS: No fracture or subluxation. Compartmental joint spaces are maintained. Tiny marginal osteophytes at the patellofemoral compartment. No joint effusion. The soft tissues are unremarkable. IMPRESSION: No fracture or malalignment. Minimal degenerative change.
[2016-05-10] MEDS ORDERED: TRAZODONE HCL50 M1 PO (13:51)
[2016-05-10] MEDS ORDERED: CARBIDOPA-LEVO1 EAC9 PO (13:54)
--- NOTE | 2016-05-10 13:56 | CT SCAN REPORT ---
EXAMINATION: CT HEAD WITHOUT CONTRAST CLINICAL INFORMATION: Fall with headache. Left-sided head impact. COMPARISON: 03/20/2016 TECHNIQUE: Contiguous axial imaging was performed from the skull base to vertex without intravenous contrast. DLP: 672 mGy-cm. FINDINGS: There is no evidence of acute intracranial hemorrhage or territorial infarction. No abnormal mass effect or midline shift is seen. Rapp to white matter differentiation is well preserved. No extra-axial fluid collections are identified. No hydrocephalus. Proportional prominence of the ventricles and sulcal spaces is consistent with mild volume loss. There is no abnormal attenuation within the brain parenchyma. Mild ectasia of the M1 segment of the left middle cerebral artery is again noted. The osseous structures and soft tissues are normal. The mastoid air cells and visualized portions of the paranasal sinuses are well aerated. IMPRESSION: No acute intracranial pathology.
== END 2016-05-10 14:22 ==
LOC: ERH 12:04
DX: S09.90XA Unspecified injury of head, initial encounter (principal); S80.02XA Contusion of left knee, initial encounter; S60.211A Contusion of right wrist, initial encounter; W19.XXXA Unspecified fall, initial encounter; Y93.89 Activity, other specified
CPT/HCPCS: 73110-RT; 73562-LT